=== PATIENT | female | born 1995 | race Caucasian/White ===

== ENCOUNTER 2017-06-15 16:15 | Inpatient (IN) | payer OTHER, SELFPAY | END 2017-06-16 20:35 | disposition home or self-care (01) | DRG 775 | PROVIDERS: Admitting Provider Nurse Practitioner Obstetrics & Gynecology; Visit Provider Nurse Practitioner Obstetrics & Gynecology | DX: O41.03X0 Oligohydramnios, third trimester, not applicable or unspecified (principal); Z37.0 Single live birth; Z3A.39 39 weeks gestation of pregnancy | CPT/HCPCS: 59409; 36415; 59025; 80305; 81001; 85025; 86850; 86900; 86901; 94762 ==

== ENCOUNTER 2019-04-09 04:58 | Inpatient (IN) ==
[2019-04-09 05:32] LABS: Appearance,Urine CLEAR (Clear); Blood, Urine TRACE-L (Negative); Color,Urine YELLOW (Yellow); Glucose,Urine (UA) Negative (Negative); Ketones,Urine Negative (Negative); Leukocyte Esterase,Urine 1+ (Negative); Microscopic, Urine URINE MICROSCOPIC (MICROSCOPIC); Protein,Urine TRACE (Negative); Specific Gravity, Urine 1.015 (1.005-1.030); Urobilinogen,Urine 0.2 EU/dl (0.2)
[2019-04-09 05:37] LABS: Amphetamine/Metha Screen,Urine Negative ng/mL (<1000); Barbiturates Screen,Urine Negative ng/mL (<200); Benzodiazepines Screen,Urine Negative ng/mL (<200); Cannabinoid Screen,Urine Negative ng/mL (<50); Cocaine Screen,Urine Negative ng/mL (<300); Methadone Screen,Urine Negative ng/mL (<300); Opiate Screen,Urine Negative ng/mL (<300); Phencyclidine Screen,Urine Negative ng/mL (<25)
[2019-04-09 06:07] LABS: Bilirubin,Urine Negative (Negative)
[2019-04-09 06:18] LABS: Bacteria,Urine 1+ /lpf; RBC,Urine Occasional #/hpf (0-3)
[2019-04-09 06:35] LABS: Basophils # 0.1 K/mm3 (0-0.2); Basophils % 0.3 % (0.1-2.0); Eosinophils # 0.1 K/mm3 (0.0-0.4); Eosinophils % 0.9 % (0.1-12.0); Hematocrit 37.6 % (37.0-47.0); Hemoglobin 12.3 g/dL (12.2-16.2); Lymphocytes # 2.7 K/mm3 (0.7-4.5); Lymphocytes % 16.7 % (10-50); Mean Corpuscular HGB Conc 32.6 g/dL (31.8-35.4); Mean Corpuscular Volume 97.5 fl (81-99); Mean Platelet Volume 9.9 fl (7.4-10.4); Monocytes % 6.1 % (1.7-9.3); Neutrophils # 12.2 K/mm3 (1.8-7.8); Neutrophils % 76.1 % (37.0-80.0); Platelet Count 384 K/mm3 (142-424); Red Blood Count 3.86 M/mm3 (4.20-5.40); White Blood Count 16.1 K/mm3 (4.8-10.8)
[2019-04-09 06:49] LABS: Eosinophils % 2 % (0-3); Lymphocytes % 14 % (10-50); Monocytes % 6 % (2-9); Neutrophils % 78 % (42-76); RBC Morphology Normal; Total Cells Counted 100
--- NOTE | 2019-04-09 07:35 | Progress Note ---
[facility] Anesthesia Checklist - Patient Identification Patient Identification: Arm Band - Structural Data Admitted From: Home Planned Operative Procedure/s: labor epidural Consent for Planned Operative Procedure(s) Verified: Yes Verified Documents: History and Physical - NPO Status Verified Time NPO: 00:00 - Additional verifications Anesthesia Reactions: No - Airway Assessment C-Spine Mobility Assessed: Yes TMJ Mobility Assessed: Yes Dentition: Good Dentition - Neurological Assessment Level of Consciousness: Awake, Alert - Anesthesia Plan Anesthesia Risk discussed: Yes Anesthesia Plan: Verified ASA Class: II Anesthesia Type: Epidural - Preoperative Comments Pre-Operative Comments: pt currently taking suboxone, discussed pain control extensively with pt d/t its antagonist effect on fentanyl. Plan is to not include fentanyl in epidural. Pt. verbalizes understanding [facility] History I have reviewed the patient's past medical history: Yes Medical History: Denies:: Diabetes Mellitus Type 1, Diabetes Mellitus Type 2 *Have you ever received a pneumonia vaccine?: No *Have you received a flu vaccine this season?: No Anesthesia experience/problems:: nac - *Social History Smoking Status: Current every day smoker Tobacco Type: cigarettes # Packs/Day (cigarettes): 1 Alcohol Intake: never Substance Use Type: other *Occupational Status:: employed *Travel in the last 8 weeks: None Family Hx:: No significant family history
--- NOTE | 2019-04-09 14:05 | History & Physical Report ---
OB - H&P: HPI Antepartum - History of Present Illness Chief complaint: contractions History of present illness: 23 yo @ 38 5/7 by patient reported EDC 04/18/19 Presented to [facility] OB triage with complaints of regular contractions. Cervical change was noted during her assessment and she was admitted in active labor. care has been through [facility] and multiple requests from for records were unsuccessful; we were told that these records are not available to the hospital after hours and would need to be requested during business hours on Wednesday. Without knowledge of maternal GBS status, she was given prophylactic antibiotics (Clindamycin due to amoxicillin allergy); maternal blood type/Rh status was confirmed with lab draw during this admission (O positive/antibody negative). has been complicated by a history of opioid dependence, and she is currently treated with subutex 16mg daily. + tobacco abuse (1PPD) monitoring since admission has showed intermittent periods of decreased variability, but has remained reassuring overall. Maternal status has been stable, with intermittent periods of hypotension following placement of epidural. - Labs Blood type: O (+) positive Rubella: unknown RPR/VDRL: unknown GBS status: unknown HBsAG: unknown Narrative: records from [facility]" [facility] unavailable at time of admission [facility] History I have reviewed the patient's past medical history: Yes Medical History: Denies:: Asthma, Diabetes Mellitus Type 1, Diabetes Mellitus Type 2, Hepatitis, Hypertension, Seizures *Have you ever received a pneumonia vaccine?: No *Have you received a flu vaccine this season?: No Anesthesia experience/problems:: nac Other Surgeries: Yes: Appendectomy, Cholecystectomy. No: - *Social History Smoking Status: Current every day smoker Tobacco Type: cigarettes # Packs/Day (cigarettes): 1 Alcohol Intake: never Substance Use Type: other *Occupational Status:: employed *Travel in the last 8 weeks: None Family Hx:: No significant family history : 2 Para: 1 Review of Systems - Review of Systems CONSTITUTIONAL: no fever/chills HEENT: no oral lesions PULMONARY: no shortness of breath or difficulty breathing CV: no racing heart, palpitations or chest pain ABD: no abdominal pain, N/V : + contractions. No bleeding/LOF SKIN: no new rash or skin lesions EXT: no edema NEURO: no mental status changes PSYCH: no current anxiety/depression Meds Home Medications Medication Instructions Recorded Confirmed Type Buprenorphine HCl [Subutex 8mg ODT] 16 mg SL DAILY 08/23/18 04/09/19 History Pnv No.122/Iron/Folic Acid 1 each PO DAILY 09/28/18 04/09/19 History [ Multi Tablet] Allergies Allergy/AdvReac Type Severity Reaction Status Date / Time amoxicillin [AMOXICILLIN] Allergy Unknown Verified 08/23/18 19:16 OB - H&P: Exam - Physical Exam Vital signs: Temp Pulse Resp BP Pulse Ox 97.5 F L 48 L 18 105/68 L 98 04/09/19 05:26 04/09/19 05:26 04/09/19 05:26 04/09/19 05:04/09/19 05:26 Narrative: CONSTITUTIONAL: no acute distress HEENT: mucous membranes moist PULMONARY: breathing unlabored without audible wheezes CV: no tachycardia or visible JVD; normal LE peripheral pulses ABD: soft, NT/ND, no guarding. Gravid uterus. : cervix 8/100/0 SKIN: no visible rash or lesions HEME: no lymphadenopathy EXT: 1+ edema LEs NEURO: alert/oriented, no altered mental status PSYCH: appropriate mood and demeanor without visible anxiety/depression NST: Basline: 130 Variability: moderate, with intermittent minimal Accelerations: yes Decelerations: no OB - Results - Labs Labs: Short CBC 04/09/19 Range/Units 05:46 WBC 16.1 H (4.8-10.8) K/mm3 Hgb 12.3 (12.2-16.2) g/dL Hct 37.6 (37.0-47.0) % Plt Count 384 (142-424) K/mm3 Urine 04/09/19 Range/Units 05:10 Urine Color Yellow (Yellow) Urine Appearance Clear (Clear) Urine pH 7.0 (5.0-8.5) Ur Specific [place] 1.015 (1.005-1.030) Urine Protein Trace (Negative) Urine Glucose (UA) Negative (Negative) OB - A/P Antepartum (1) 38 weeks gestation of Current visit: Yes Status: Acute (2) Active labor at term Current visit: Yes Status: Acute (3) with care elsewhere Current visit: Yes Status: Acute (4) complicated by subutex maintenance, antepartum Current visit: Yes Status: Acute (5) Smoking (tobacco) complicating , third trimester Current visit: Yes Status: Acute - Additional Plan Additional Information:: Admitted per labor protocol Antibiotic prophylaxis with clindamycin Continuous monitoring Epidural at patient request Unable to access records until tomorrow Continue subutex therapy at prescribed dosage Tobacco cessation
--- NOTE | 2019-04-09 14:25 | Procedure Note ---
- Delivery Note Delivery Date:: 04/09/19 Delivery Time:: 13:39 Anesthesia Type: Epidural Was labor medically induced?: No Gestational age (weeks): 38 delivered prior to 39 weeks?: Yes Justification for early elective delivery:: Active Labor Gender: Male at 1 minute: 8 at 5 minutes: 9 Delivery Procedure:: Spontaneous vaginal delivery of vigorous liveborn male over intact perineum. Delivery uncomplicated No nuchal cord or shoulder dystocia noted with delivery placed in TRISTAN with mother immediately after umbilical cord clamped/cut, with standard nursing assessment performed. Infant given HBIG in absence of documentation of maternal status (no records) Infant Apgars: 8 & 9 Placenta manually extracted after umbilical cord avulsion; uterine cavity explored to ensure complete evacuation of placental tissue and membranes Vulva, vagina, and cervix inspected; right periurethral laceration noted but no perineal, vaginal or cervical lacerations. Periurethral laceration hemostatic and not repaired. EBL: 300 cc All sponge/needle/instrument counts correct at conclusion of procedure Disposition: Mom/baby stable to recovery in LDRP Laceration:: labial Placental Delivery Description: Manual Removal
[2019-04-10 07:25] LABS: Hematocrit 32.5 % (37.0-47.0); Hemoglobin 10.2 g/dL (12.2-16.2)
[2019-04-10 08:36] VITALS: BP 121/61
--- NOTE | 2019-04-10 15:10 | Discharge Summary ---
General - General Admission date:: 04/09/19 Discharge date: 04/10/19 HPI HPI: 23 yo presented in active labor care in [place] with [facility]" due to chronic subutex therapy Delivery uncomplicated and course uneventful Discharged home on PPD #1 in stable condition Ibuprofen prn for pain; will continue subutex at maintenance dose and f/u with regular prescribing md for that medication May f/u for 6 wk visit with either [facility] or at [facility] Hospital Course Hospital Course: see HPI Rhogam Administration: Not Indicated Objective Vital signs: Temp Pulse Resp BP Pulse Ox 97.6 F 74 17 121/61 96 04/10/19 08:10 04/10/19 08:10 04/10/19 08:10 04/10/19 08:10 04/10/19 08:10 Narrative: CONSTITUTIONAL: no acute distress HEENT: mucous membranes moist PULMONARY: breathing unlabored without audible wheezes CV: no tachycardia or visible JVD; normal LE peripheral pulses ABD: soft, NT/ND, no guarding : fundus firm at/below umbilicus SKIN: no visible rash or lesions EXT: 1+ edema LEs NEURO: alert/oriented, no altered mental status PSYCH: appropriate mood and demeanor without visible anxiety/depression Results Labs on day of discharge: Labs from last 24 hours 04/10/19 04/10/19 06:50 06:50 Hgb 10.2 L Hct 32.5 L Blood Type Cancelled Antibody Screen Cancelled Screen Cancelled Baby's Rh Status Cancelled Preliminary micro results at discharge 04/09/19 05:10 Urine Culture - Preliminary Urine,Clean Catch NO GROWTH AFTER 24 HOURS DS: Diagnosis - Discharge Diagnosis (1) 38 weeks gestation of Status: Acute (2) Active labor at term Status: Acute (3) with care elsewhere Status: Acute (4) complicated by subutex maintenance, antepartum Status: Acute (5) Smoking (tobacco) complicating , third trimester Status: Acute (6) Vaginal delivery Status: Acute Discharge Plan - Patient Discharge Instructions ACTIVITY: Continue current activity DIET: regular diet - Follow up Plan Disposition: Home, Self-Correction Medications: Home Medications Medication Instructions Recorded Confirmed Type Buprenorphine HCl [Subutex 8mg ODT] 16 mg SL DAILY 08/23/18 04/09/19 History Pnv No.122/Iron/Folic Acid 1 each PO DAILY 09/28/18 04/09/19 History [ Multi Tablet] Prescriptions/Medication Reconciliation: New Ibuprofen [Motrin 400mg tablet] 800 mg PO Q6HP PRN tablet PRN Reason: Mild To Moderate Pain Continued Buprenorphine HCl [Subutex 8mg ODT] 16 mg SL DAILY Pnv No.122/Iron/Folic Acid [ Multi Tablet] 1 each PO DAILY - Problem Reconciliation Problems Reviewed?: Yes
== END 2019-04-10 15:38 | disposition home or self-care (01) | DRG 807 ==
LOC: OBOUT 04:58 → OB 05:05
PROVIDERS: ADMIT Obstetrics & Gynecology; ATTEND Obstetrics & Gynecology
CPT/HCPCS: 36415; 59025; 80305; 80307; 81001; 85007; 85014; 85018; 85025; 86850; 87086; 88307; 94761; J0571; S0077

== ENCOUNTER 2019-11-17 16:09 | Emergency (ER) | payer MEDICAID, SELFPAY ==
[2019-11-17 16:16] VITALS: BP 123/84; PULSE 100; RESP 16; TEMP 36.8; O2SAT 100; BMI 25.7
--- NOTE | 2019-11-17 16:19 | HMH.EDUTC ---
[facility] [place] Clinical Impression: Tobacco dependence Raynauds phenomenon Qualifiers: Raynaud?s-associated gangrene presence: without gangrene Qualified Code(s): I73.00 - Raynaud's syndrome without gangrene Disposition: Home, Self-Care Condition on Discharge: Good Instructions: Nicotine Addiction Additional Instructions: Drink plenty of fluids. Being mildly dehydrated with decrease the blood flow to your toes and fingers also. Stop smoking. Smoking causes vasoconstriction, which will make your nail beds more pale than they usually are. If you start having foot pain, pain with walking or any other worsening symptoms, please go to the ER. Follow up with your regular doctor. GO TO THE ER FOR ANY WORSENING SYMPTOMS Referrals: Provider,Referral, MD [Primary Care Provider] - Forms: Work/School Release Time of Disposition: 16:24 Medical Decision Making - Medical Records Medical records reviewed: No: I reviewed the patient's medical records. - Oli Inquiry Pt receiving controlled substance: No Vital Signs: 11/17/19 16:16 11/17/19 16:33 Temperature 98.2 F 98.8 F Temperature Source Oral Oral Pulse Rate 87 Pulse Rate [Right Brachial] 100 H Respiratory Rate 16 16 Blood Pressure 123/84 Blood Pressure [Right Arm] 123/84 Blood Pressure Mean [Right Arm] 97 Blood Pressure Source Automatic Cuff Blood Pressure Source [Right Arm] Automatic Cuff Blood Pressure Position Sitting Blood Pressure Position [Right Arm] Sitting 02 Sat by Pulse Oximetry 100 Oxygen Delivery Method Room Air Room Air [facility] [place] - General Stated complaint: weakness,problems with toe nails they are white Time Seen by Provider: 11/17/19 16:19 Mode of Arrival: Ambulatory Source of Information: Patient Limitations: No Limitations Description of Symptoms (Recalled from Triage Doc. by RN): PT advises she just feels weak and doesnt feel like herself and her toenails are white HEENT Symptoms (Recalled from RN notes): No Resp Symptoms (Recalled from RN notes): No Skin Symptoms (Recalled from RN notes): No MS Symptoms (Recalled from RN notes): No Functional Status (Recalled from RN notes): na - History of Present Illness Provider Complaint: She states that she was looking at her toes today and all the nail beds appear white, instead of the normal pink. She denies any foot pain, claudication, or other compliants. She does smoke cigarettes and she states states that she has been smoking more than normal lately due to stress. - Related Data Home Medications Medication Instructions Recorded Confirmed buprenorphine HCL [Subutex 8mg ODT] 16 mg SL DAILY 08/23/18 10/18/19 Mirtazapine [Remeron] 15 mg PO HS 10/18/19 10/18/19 Quetiapine Fumarate [Seroquel 25mg 25 mg PO HS 10/18/19 10/18/19 tablet] Sertraline HCl [Zoloft] 25 mg PO DAILY 10/18/19 10/18/19 Trazodone HCl 50 mg PO HSP PRN 10/18/19 10/18/19 Previous Rx's Medication Instructions Recorded Albuterol Sulfate [Albuterol HFA 1 - 2 puffs IH Q4-6H PRN #1 inh 10/18/19 Inhaler] Azithromycin [Z-Reinier 250mg Tab*] 250 mg PO UD DOSE PK #6 tab 10/18/19 Allergies Allergy/AdvReac Type Severity Reaction Status Date / Time amoxicillin [AMOXICILLIN] Allergy Unknown Verified 08/23/18 19:16 - Worker's Comp Is this a Worker's Comp case?: No [facility] History - Hepatitis A Screen Drug use history?: No High risk sexual behaviors?: No History of sexually transmitted infection?: No Currently employed?: No Childcare worker?: No Do you have indoor plumbing?: Yes Do you have electricity?: Yes Attestation statement:: This patient has been screened for Hepatitis A risk factors. I have reviewed the patient's past medical history: Yes Medical History: Denies:: Asthma, Diabetes Mellitus Type 1, Diabetes Mellitus Type 2, Hepatitis, Hypertension, Seizures Other Surgeries: Yes: Appendectomy, Cholecystectomy. No: - Social History Smoking Status: Cur
[2019-11-17 16:33] VITALS: BP 123/84; PULSE 87; RESP 16; TEMP 37.1; O2SAT 98
== END 2019-11-17 16:34 | disposition home or self-care (01) ==
PROVIDERS: Emergency Provider Nurse Practitioner Family
DX: I73.00 Raynaud's syndrome without gangrene (principal); F17.210 Nicotine dependence, cigarettes, uncomplicated; Z88.1 Allergy status to other antibiotic agents; Z79.899 Other long term (current) drug therapy; Z90.49 Acquired absence of other specified parts of digestive tract
CPT/HCPCS: 99201

== ENCOUNTER 2020-05-14 16:10 | Emergency (ER) | payer MEDICAID, SELFPAY ==
[2020-05-14 16:25] VITALS: BP 116/68; PULSE 73; RESP 21; TEMP 36.9; O2SAT 98; BMI 24.3
--- NOTE | 2020-05-14 16:56 | HMH.EDUTC ---
[facility] [place] [facility] [place] Clinical Impression: Urinary frequency, Dysuria Disposition: Home, Self-Care Condition on Discharge: Good Instructions: Urinary Tract Infection, Urine Culture, DI for Urinary Tract Infection (UTI) Additional Instructions: Drink plenty of fluids. Take tylenol or ibuprofen for pain or fever. Take the medications as directed. Follow up with your regular doctor. GO TO THE ER FOR ANY WORSENING SYMPTOMS Prescriptions: Sulfamethoxazole/Trimethoprim [Bactrim DS tablet] 1 each PO BID 7 Days #14 tab Transmission Status: Received by [facility] Referrals: PCP,No [Primary Care Provider] - Time of Disposition: 17:04 Medical Decision Making - Medical Records Medical records reviewed: No: I reviewed the patient's medical records. - Oli Inquiry Pt receiving controlled substance: No Vital Signs: 05/14/20 16:25 05/14/20 17:06 Temperature 98.4 F 98.4 F Temperature Source Oral Pulse Rate 73 Pulse Rate [Right Brachial] 73 Respiratory Rate 21 21 Blood Pressure 116/68 Blood Pressure [Right Arm] 116/68 Blood Pressure Mean [Right Arm] 84 Blood Pressure Source [Right Arm] Automatic Cuff Blood Pressure Position [Right Arm] Sitting 02 Sat by Pulse Oximetry 98 Oxygen Delivery Method Room Air - Lab Data Lab results reviewed: Yes: I reviewed the patient's lab results. Lab Results 05/14/20 16:48: Urine Color Dark yellow, Urine Appearance Cloudy, Urine pH 5.5, Ur Specific [place] >= 1.030, Urine Protein Negative, Urine Glucose (UA) Negative, Urine Ketones Negative, Urine Blood Negative, Urine Nitrate Negative, Urine Bilirubin 1+ A, Urine Urobilinogen 0.2, Ur Leukocyte Esterase Negative Orders (Tests/Meds): ORDERS Category Date Time Status Urine Culture Routine Micro 05/14/20 16:30 Received [facility] [place] [facility] [place] - General Stated complaint: possible uti Time Seen by Provider: 05/14/20 16:56 Mode of Arrival: Ambulatory Source of Information: Patient Limitations: No Limitations Description of Symptoms (Recalled from Triage Doc. by RN): PATIENT C/O LOWER BACK AND PELVIC PAIN AND URINARY URGENCY AT NIGHT X 1 WEEK HEENT Symptoms (Recalled from RN notes): No Resp Symptoms (Recalled from RN notes): No Skin Symptoms (Recalled from RN notes): No MS Symptoms (Recalled from RN notes): No Functional Status (Recalled from RN notes): WNL - History of Present Illness Provider Complaint: She c/o low back pain, dysuria and urinary frequency for the past 2 days. She denies any chance of being . She denies any fever or chills. - Related Data Home Medications Medication Instructions Recorded Confirmed buprenorphine HCL [Subutex 8mg ODT 16 mg SL DAILY 08/23/18 10/18/19 *OB USE ONLY*] Mirtazapine [Remeron] 15 mg PO HS 10/18/19 10/18/19 Quetiapine Fumarate [Seroquel 25mg 25 mg PO HS 10/18/19 10/18/19 tablet] Sertraline HCl [Zoloft] 25 mg PO DAILY 10/18/19 10/18/19 Trazodone HCl 50 mg PO HSP PRN 10/18/19 10/18/19 Previous Rx's Medication Instructions Recorded Albuterol Sulfate [Albuterol HFA 1 - 2 puffs IH Q4-6H PRN #1 inh 10/18/19 Inhaler] Azithromycin [Z-Reinier 250mg Tab*] 250 mg PO UD DOSE PK #6 tab 10/18/19 Sulfamethoxazole/Trimethoprim 1 each PO BID 7 Days #14 tab 05/14/20 [Bactrim DS tablet] Allergies Allergy/AdvReac Type Severity Reaction Status Date / Time amoxicillin [AMOXICILLIN] Allergy Unknown Verified 08/23/18 19:16 - Worker's Comp Is this a Worker's Comp case?: No [facility] History - Hepatitis A Screen Drug use history?: No High risk sexual behaviors?: No History of sexually transmitted infection?: No Currently employed?: No Childcare worker?: No Do you have indoor plumbing?: Yes Do you have electricity?: Yes Attestation statement:: This patient has been screened for Hepatitis A risk factors. I have reviewed the patient's past medical history: Yes Medical History: Denies:: Asthma, Diabetes Mellitus Type 1, Diabetes Mellit
[2020-05-14 17:02] LABS: Apearance,Urine Cloudy (Clear); Color,Urine Dark Yellow (Yellow)
[2020-05-14 17:03] LABS: Bilirubin,Urine 1+ (Negative); Blood, Urine Negative (Negative); Glucose,Urine (UA) Negative (Negative); Ketones,Urine Negative (Negative); PH,Urine 5.5 (5.0-8.5); Protein,Urine Negative (Negative); Specific Gravity, Urine >= 1.030 (1.005-1.030); UTC Leukocyte Esterase,Urine Negative (Negative); UTC Nitrate,Urine Negative (Negative); Urobilinogen,Urine 0.2 EU/dl (0.2)
[2020-05-14 17:06] VITALS: BP 116/68; PULSE 73; RESP 21; TEMP 36.9; O2SAT 98
== END 2020-05-14 17:11 | disposition home or self-care (01) ==
PROVIDERS: Emergency Provider Nurse Practitioner Family
DX: R35.0 Frequency of micturition (principal); R30.0 Dysuria; M54.5 Low back pain; R10.2 Pelvic and perineal pain; Z88.1 Allergy status to other antibiotic agents
CPT/HCPCS: 81003; 87086; 99201

== ENCOUNTER 2020-10-04 15:14 | Emergency (ER) | payer MEDICAID, SELFPAY ==
[2020-10-04 15:30] VITALS: BP 119/64; PULSE 72; RESP 17; TEMP 37; O2SAT 98; BMI 23.3
--- NOTE | 2020-10-04 15:51 | HMH.EDUTC ---
[facility] [place] Clinical Impression: Dyspepsia Disposition: Home, Self-Care Condition on Discharge: Good Instructions: DI for Dyspepsia Additional Instructions: Consider taking Pepcid daily and using Maalox as needed for abdominal pain and upset stomach. Talk to your doctor about whether or not mirtazapine is causing you to have upset stomach. Consider smoking cessation as this will help your upset stomach as well. Referrals: Ghassan Tirado [Primary Care Provider] - 3 days Forms: Work/School Release Medical Decision Making - Medical Records Medical records reviewed: No: I reviewed the patient's medical records. - Oli Inquiry Pt receiving controlled substance: No Vital Signs: 10/04/20 15:30 10/04/20 16:58 10/04/20 17:11 Temperature 98.6 F 98 F 98 F Temperature Source Oral Oral Oral Pulse Rate 78 Pulse Rate [Left] 72 78 Respiratory Rate 17 16 16 Blood Pressure 112/65 Blood Pressure [Left Arm] 119/64 111/69 Blood Pressure Mean [Left Arm] 82 83 Blood Pressure Source [Left Arm] Automatic Cuff Blood Pressure Position Sitting Blood Pressure Position [Left Arm] Sitting 02 Sat by Pulse Oximetry 98 96 Oxygen Delivery Method Room Air Room Air Room Air - Lab Data Lab results reviewed: Yes: I reviewed the patient's lab results. Lab Results 10/04/20 15:51: Urine Color Yellow, Urine Appearance Clear, Urine pH 6.5, Ur Specific [place] 1.030, Urine Protein Negative, Urine Glucose (UA) Negative, Urine Ketones Negative, Urine Blood Negative, Urine Nitrate Negative, Urine Bilirubin Negative, Urine Urobilinogen 0.2, Ur Leukocyte Esterase Negative, Tst Clinic Negative 10/04/20 16:10: WBC 7.4, RBC 4.25, Hgb 13.4, Hct 42.3, MCV 99.5 H, MCH 31.4 H, MCHC 31.6 L, RDW 11.7, Plt Count 252, MPV 7.6, Neut % (Auto) 58.3, Lymph % (Auto) 30.1, [place] % (Auto) 6.1, Eos % (Auto) 4.5, Baso % (Auto) 1.0, Neut # (Auto) 4.3, Lymph # (Auto) 2.2, [place] # (Auto) 0.5, Eos # (Auto) 0.3, Baso # (Auto) 0.1 10/04/20 16:10: Sodium 138, Potassium 4.1, Chloride 103, Carbon Dioxide 29, Anion Gap 10.1, BUN 10, Creatinine 0.60, Estimated Creat Clear 138, Estimated GFR 121, Est GFR ( Amer) 146, Glucose 90, Calcium 9.4, Total Bilirubin 0.2, AST 26, ALT 10 L, Alkaline Phosphatase 52, Total Protein 7.3, Albumin 4.5, Globulin 2.8, Albumin/Globulin Ratio 1.6, Amylase 67, Lipase 21 L Result diagrams: 10/04/20 16:10 10/04/20 16:10 [facility] [place] - General Stated complaint: stamoach ache Time Seen by Provider: 10/04/20 15:51 Mode of Arrival: Ambulatory Description of Symptoms (Recalled from Triage Doc. by RN): Pt c/o intermittent sharp, upper ABD pain that started 3 days ago. Pt also reports nasuea when the pain worsens. HEENT Symptoms (Recalled from RN notes): No Resp Symptoms (Recalled from RN notes): No Skin Symptoms (Recalled from RN notes): No MS Symptoms (Recalled from RN notes): No Functional Status (Recalled from RN notes): na - History of Present Illness Provider Complaint: She c/o 3 days of upper abdomen pain. She has had nausea and diarrhea also. She denies any fever. She had her gall bladder removed several years ago, but she still has her appendix. - Related Data Home Medications Medication Instructions Recorded Confirmed buprenorphine HCL [Subutex 8mg ODT 16 mg SL DAILY 08/23/18 10/04/20 *OB USE ONLY*] Allergies Allergy/AdvReac Type Severity Reaction Status Date / Time amoxicillin [AMOXICILLIN] Allergy Unknown Verified 05/24/20 10:32 - Worker's Comp Is this a Worker's Comp case?: No [facility] History - Hepatitis A Screen Drug use history?: Yes High risk sexual behaviors?: No History of sexually transmitted infection?: No Currently employed?: No Childcare worker?: No Do you have indoor plumbing?: Yes Do you have electricity?: Yes Attestation statement:: This patient has been screened for Hepatitis A risk factors. I have reviewed the patient's past medical history: Yes Medical History:
[2020-10-04 16:04] LABS: Apearance,Urine Clear (Clear); Bilirubin,Urine Negative (Negative); Blood, Urine Negative (Negative); Color,Urine Yellow (Yellow); Glucose,Urine (UA) Negative (Negative); Ketones,Urine Negative (Negative); PH,Urine 6.5 (5.0-8.5); Protein,Urine Negative (Negative); UTC Leukocyte Esterase,Urine Negative (Negative); UTC Nitrate,Urine Negative (Negative); UTC Pregnancy Test, Urine Negative (Negative); Urobilinogen,Urine 0.2 EU/dl (0.2)
[2020-10-04 16:25] LABS: Basophils # 0.1 K/mm3 (0-0.2); Eosinophils # 0.3 K/mm3 (0.0-0.4); Eosinophils % 4.5 % (0.1-12.0); Hematocrit 42.3 % (37.0-47.0); Hemoglobin 13.4 g/dL (12.2-16.2); Lymphocytes # 2.2 K/mm3 (0.7-4.5); Lymphocytes % 30.1 % (10-50); Mean Corpuscular HGB Conc 31.6 g/dL (31.8-35.4); Mean Corpuscular Hemoglobin 31.4 pg (27.0-31.2); Mean Corpuscular Volume 99.5 fl (81-99); Mean Platelet Volume 7.6 fl (7.4-10.4); Monocytes # 0.5 K/mm3 (0.1-1.0); Monocytes % 6.1 % (1.7-9.3); Neutrophils # 4.3 K/mm3 (1.8-7.8); Neutrophils % 58.3 % (37.0-80.0); Platelet Count 252 K/mm3 (142-424); Red Blood Count 4.25 M/mm3 (4.20-5.40); Red Cell Distribution Width 11.7 % (11.5-17.5); White Blood Count 7.4 K/mm3 (4.8-10.8)
[2020-10-04 16:41] LABS: Alanine Aminotransferase 10 U/L (12-78); Albumin Level 4.5 g/dl (3.5-5.0); Albumin/Globulin Ratio 1.6 (1.1-1.8); Alkaline Phosphatase 52 U/L (38-126); Amylase 67 U/L (30-110); Anion Gap 10.1 mEq/L (5-15); Aspartate Amino Transferase 26 U/L (14-36); Bilirubin,Total 0.2 mg/dl (0.2-1.3); Blood Urea Nitrogen 10 mg/dl (7-17); Calcium 9.4 mg/dl (8.4-10.2); Carbon Dioxide 29 mmol/L (22.0-30.0); Chloride 103 mmol/L (98-107); Creatinine Clearance Estimated 138 mL/min (50-200); Estimated Glomerular Filt Rate 121 ml/min (>60); GFR (African American) 146 ML/MIN (>60); Globulin 2.8 g/dL (1.3-3.2); Glucose 90 mg/dl (74-100); Lipase 21 U/L (23-300); Potassium 4.1 mmoL/L (3.5-5.1); Sodium 138 mmol/L (136-145); Total Protein,Serum 7.3 g/dl (6.3-8.2)
--- NOTE | 2020-10-04 16:45 | PC.NURSE ---
Pt requesting to go to the ER at this time. Called ER and given room 10.
--- NOTE | 2020-10-04 16:55 | HMH.EDABDPAI ---
ED Disposition Clinical Impression: Dyspepsia Disposition: Home, Self-Care Condition on Discharge: Good Instructions: DI for Dyspepsia Additional Instructions: Consider taking Pepcid daily and using Maalox as needed for abdominal pain and upset stomach. Talk to your doctor about whether or not mirtazapine is causing you to have upset stomach. Consider smoking cessation as this will help your upset stomach as well. Referrals: Ghassan Tirado [Primary Care Provider] - 3 days - Critical Care Critical Care Time: No Attestation: On 10/04/20, the high probability of a clinically significant, sudden or life threatening deterioration of the following system(s) required my full and direct attention, intervention and personal management. The time I documented below is in addition to time spent performing reported procedures but includes the following listed in this critical care notation. Medical Decision Making - Medical Records Medical records reviewed: Yes: I reviewed the patient's medical records. - Oli Inquiry Pt receiving controlled substance: No Vital Signs: 10/04/20 15:30 Temperature 98.6 F Temperature Source Oral Pulse Rate [Left] 72 Respiratory Rate 17 Blood Pressure [Left Arm] 119/64 Blood Pressure Mean [Left Arm] 82 Blood Pressure Source [Left Arm] Automatic Cuff 02 Sat by Pulse Oximetry 98 Oxygen Delivery Method Room Air - Lab Data Lab results reviewed: Yes: I reviewed the patient's lab results. Lab Results 10/04/20 15:51: Urine Color Yellow, Urine Appearance Clear, Urine pH 6.5, Ur Specific [place] 1.030, Urine Protein Negative, Urine Glucose (UA) Negative, Urine Ketones Negative, Urine Blood Negative, Urine Nitrate Negative, Urine Bilirubin Negative, Urine Urobilinogen 0.2, Ur Leukocyte Esterase Negative, Tst Clinic Negative 10/04/20 16:10: WBC 7.4, RBC 4.25, Hgb 13.4, Hct 42.3, MCV 99.5 H, MCH 31.4 H, MCHC 31.6 L, RDW 11.7, Plt Count 252, MPV 7.6, Neut % (Auto) 58.3, Lymph % (Auto) 30.1, [place] % (Auto) 6.1, Eos % (Auto) 4.5, Baso % (Auto) 1.0, Neut # (Auto) 4.3, Lymph # (Auto) 2.2, [place] # (Auto) 0.5, Eos # (Auto) 0.3, Baso # (Auto) 0.1 10/04/20 16:10: Sodium 138, Potassium 4.1, Chloride 103, Carbon Dioxide 29, Anion Gap 10.1, BUN 10, Creatinine 0.60, Estimated Creat Clear 138, Estimated GFR 121, Est GFR ( Amer) 146, Glucose 90, Calcium 9.4, Total Bilirubin 0.2, AST 26, ALT 10 L, Alkaline Phosphatase 52, Total Protein 7.3, Albumin 4.5, Globulin 2.8, Albumin/Globulin Ratio 1.6, Amylase 67, Lipase 21 L Result diagrams: 10/04/20 16:10 10/04/20 16:10 Medical Decision Narrative: Patient's labs show no signs of UTI, test negative. No signs of biliary obstruction or pancreatitis. No chest pain or shortness of breath that would suggest cardiopulmonary process. Suspect dyspepsia/gastritis secondary to smoking, frequent anxiety, Suboxone use and possibly new medication mirtazapine is an irritant as well. I recommended Pepcid daily and Maalox as needed for acute exacerbations. Also recommended follow-up with primary care provider early next week to discuss whether or not they may need to switch medication from mirtazapine to another medicine that is not such a gastric irritant for her. Her symptoms are inconsistent with bowel obstruction, perforation, appendicitis, volvulus, diverticulitis or other acute intra-abdominal pathology. Abdominal Pain HPI - General Stated Complaint: stamoach ache Time Seen by Provider: 10/04/20 15:51 Mode of Arrival: Ambulatory Description of Symptoms (Recalled from ER Triage Doc. by RN): Pt c/o intermittent sharp, upper ABD pain that started 3 days ago. Pt also reports nasuea when the pain worsens. - History of Present Illness HPI narrative: This is a 25-year-old female with no significant past medical history who presents to the emergency department for epigastric abdominal pain over the last 3 days. No exacerbating or alleviating factors. She
[2020-10-04 16:58] VITALS: BP 111/69; PULSE 78; RESP 16; TEMP 36.6; O2SAT 96; BMI 23.1
[2020-10-04 17:11] VITALS: BP 112/65; PULSE 78; RESP 16; TEMP 36.6; O2SAT 98
== END 2020-10-04 17:12 | disposition home or self-care (01) ==
LOC: UTC 15:16 → COUGHCL 16:49 → ER 16:49
PROVIDERS: Emergency Provider Nurse Practitioner Family; PCP Pediatrics
DX: R10.13 Epigastric pain (principal); Z88.1 Allergy status to other antibiotic agents; F17.210 Nicotine dependence, cigarettes, uncomplicated
CPT/HCPCS: 80053; 81003; 81025; 82150; 83690; 85025; 99282

== ENCOUNTER 2021-03-21 19:18 | Emergency (ER) | payer MEDICAID, SELFPAY ==
[2021-03-21 20:56] VITALS: BP 0/0; PULSE 0; RESP 0; TEMP -17.7; TEMP 0
== END 2021-03-21 20:57 | disposition left against medical advice (07) ==
LOC: UTC 19:21
PROVIDERS: Emergency Provider Nurse Practitioner Family; PCP Pediatrics
DX: Z53.21 Procedure and treatment not carried out due to patient leaving prior to being seen by health care provider (principal)

== ENCOUNTER 2021-03-22 15:34 | Emergency (ER) | payer MEDICAID, SELFPAY ==
[2021-03-22 16:37] VITALS: BP 114/75; PULSE 84; RESP 18; TEMP 36.6; O2SAT 96; BMI 21.6
--- NOTE | 2021-03-22 16:44 | HMH.EDUTC ---
[facility] [place] Dis[place] Clinical Impression: Viral syndrome, Exposure to COVID-19 virus Disposition: Home, Self-Care Condition on Discharge: Good Instructions: DI for COVID-19 (Suspected or Confirmed ), Preventing the Spread of Coronavirus Discharge Instructions Additional Instructions: Drink plenty of fluids. Take tylenol or ibuprofen for pain or fever. Take the medications as directed. Follow up with your regular doctor. GO TO THE ER FOR ANY WORSENING SYMPTOMS Throw your tooth brush away and get a new one. Quarantine until you know the results of your covid-19 test. If it is positive, the health department should call you and give you further instructions about your length of Quarantine and other things. Notify your school or workplace of your results and follow their instructions regarding return to work/school. Prescriptions: Brompheniramine/Pseudoephed/Dm [Bromfed Dm Cough Syrup] 5 ml PO Q6HP PRN #240 ml PRN Reason: Cough Transmission Status: Received by [id number] predniSONE [Deltasone 10mg tablet] 10 mg PO BID 3 Days #6 tab Transmission Status: [facility] Azithromycin [Z-Reinier 250mg Tab*] 250 mg PO UD DOSE PK #6 tab Transmission Status: [facility] Referrals: Ghassan Tirado [Primary Care Provider] - Forms: Work/School Release Time of Disposition: 17:02 Medical Decision Making - Medical Records Medical records reviewed: No: I reviewed the patient's medical records. - Oli Inquiry Pt receiving controlled substance: No Vital Signs: 03/22/21 16:37 03/22/21 16:49 Temperature 98 F 98 F Temperature Source Oral Pulse Rate 84 Pulse Rate [Left] 84 Respiratory Rate 18 18 Blood Pressure 114/75 Blood Pressure [Right Arm] 114/75 Blood Pressure Mean [Right Arm] 88 02 Sat by Pulse Oximetry 96 Orders (Tests/Meds): ORDERS Category Date Time Status Covid-19 Nasal PCR ([facility]) Routine Lab 03/22/21 16:24 Received [facility] [place] HPI - General Stated complaint: covid test, cough BEDOYA,Weak, Abd pain RUnny nose Time Seen by Provider: 03/22/21 16:45 Mode of Arrival: Ambulatory Source of Information: Patient Limitations: No Limitations Description of Symptoms (Recalled from Triage Doc. by RN): PT C/O FEVER, RUNNY NOSE, BODY WEAKNESS, LOSS OF SMELL AND COUGH. EXPOSED 03/16 HEENT Symptoms (Recalled from RN notes): Yes (RUNNY NOSE AND LOSS OF SMELL) Resp Symptoms (Recalled from RN notes): Yes (COUGH) Skin Symptoms (Recalled from RN notes): No MS Symptoms (Recalled from RN notes): No Functional Status (Recalled from RN notes): WEAKNESS AND FEVER - History of Present Illness Provider Complaint: She states that 2 days ago she started feeling bad. She has a sore throat, dry cough and she has lost her sense of smell. She has not been vaccinated against covid-19. - Related Data Home Medications Medication Instructions Recorded Confirmed buprenorphine HCL [Subutex 8mg ODT 16 mg SL DAILY 08/23/18 10/04/20 *OB USE ONLY*] Previous Rx's Medication Instructions Recorded Azithromycin [Z-Reinier 250mg Tab*] 250 mg PO UD DOSE PK #6 tab 03/22/21 Brompheniramine/Pseudoephed/Dm 5 ml PO Q6HP PRN #240 ml 03/22/21 [Bromfed Dm Cough Syrup] predniSONE [Deltasone 10mg tablet] 10 mg PO BID 3 Days #6 tab 03/22/21 Allergies Allergy/AdvReac Type Severity Reaction Status Date / Time amoxicillin [AMOXICILLIN] Allergy Unknown Verified 05/24/20 10:32 - Worker's Comp Is this a Worker's Comp case?: No [facility] History - Hepatitis A Screen Drug use history?: No High risk sexual behaviors?: No History of sexually transmitted infection?: No Currently employed?: No Childcare worker?: No Do you have indoor plumbing?: Yes Do you have electricity?: Yes Attestation statement:: This patient has been screened for Hepatitis A risk factors. I have reviewed the patient's past medical history: Yes Medical History: Denies:: Asthma, Cancer, Diabetes
[2021-03-22 16:49] VITALS: BP 114/75; PULSE 84; RESP 18; TEMP 36.6
--- NOTE | 2021-03-23 16:05 | PC.NURSE ---
informed patient that she was positive
== END 2021-03-22 17:26 | disposition home or self-care (01) ==
PROVIDERS: Emergency Provider Nurse Practitioner Family; PCP Pediatrics
DX: U07.1 COVID-19 (principal); B34.9 Viral infection, unspecified; F17.210 Nicotine dependence, cigarettes, uncomplicated
CPT/HCPCS: 99202; C9803; G0463; U0003; U0005

== ENCOUNTER 2021-08-04 17:02 | Emergency (ER) | payer MEDICAID, SELFPAY ==
[2021-08-04 17:21] VITALS: PULSE 82; RESP 16; O2SAT 99; BMI 22.1
[2021-08-04 20:39] VITALS: BP 0/0; PULSE 0; RESP 0; TEMP -17.7; TEMP 0
== END 2021-08-04 20:41 | disposition left against medical advice (07) ==
LOC: UTC 17:33
PROVIDERS: Emergency Provider Nurse Practitioner Family; PCP Pediatrics
DX: Z53.21 Procedure and treatment not carried out due to patient leaving prior to being seen by health care provider (principal)

== ENCOUNTER 2022-07-25 21:05 | Emergency (ER) | payer MEDICAID, SELFPAY ==
--- NOTE | 2022-07-25 21:12 | HMH.EDGENADL ---
Discharge Plan Disposition Patient Disposition: Home, Self-Care Condition: Good Chief Complaint: PAIN Prescriptions Prescriptions: No Action buprenorphine HCl 8 MG Tab.Subl 16 mg sublingual DAILY azithromycin 250 MG tablet 250 mg PO UD DOSE PK Qty: 6 0RF Rx Instructions: Take two (2) tablets today, then one (1) tablet days #2 thru #5 prednisone 10 MG tablet 10 mg PO BID 3 Days Qty: 6 0RF [id number] 118 ML syrup 5 ml PO Q6HP PRN (Reason: Cough) Qty: 240 0RF Referrals Follow up/Referrals: Ghassan Tirado [Primary Care Provider] - See instructions Clinical Impressions Clinical Impression: Contusion of elbow and forearm Instructions Patient Instructions: DI for Contusion Discharge ED Provider: Evan Morales General Adult HPI General Chief complaint: PAIN Stated complaint: Ao 07/25@2019 Injured R Arm Time Seen by Provider: 07/25/22 21:12 History of Present Illness HPI narrative: 27-year-old female presents with right arm injury, states she dropped a mattress and box spring over the right elbow occurred just prior to arrival, denies any numbness or tingling, has range of motion at the elbow however with some pain. No treatments prior to arrival Related Data Home Medications Medication Instructions Recorded Confirmed buprenorphine HCl 8 mg sublingual 16 mg sublingual DAILY drug 08/23/18 10/04/20 tablet addition hx Previous Rx's Medication Instructions Recorded azithromycin 250 mg tablet 250 mg PO UD DOSE PK #6 tabs 03/22/21 hokhxaxtvsuubeh-mnqybezogdsecbo-TF 5 ml PO Q6HP PRN Cough #240 mL 03/22/21 2 mg-30 mg-10 mg/5 mL oral syrup prednisone 10 mg tablet 10 mg PO BID 3 days #6 tabs 03/22/21 Allergies Allergy/AdvReac Type Severity Reaction Status Date / Time amoxicillin [AMOXICILLIN] Allergy Unknown Verified 05/24/20 10:32 [facility] Disclaimer: The information contained in this section may have been updated after the patient was seen, as this information can be updated by other users. Medical History Opioid dependence Surgical History Hx of appendectomy Hx of cholecystectomy Social History Smoking Status: Current every day smoker tobacco type: cigarettes packs per day: 5 alcohol intake: never substance use type: former substance user current occupational status: other Travel in the last 8 weeks: None household members: significant other and children ROS Obtained: Yes Systems reviewed as appropriate & no additional complaints except as documented Constitutional Constitutional: Reports system reviewed and no additional complaints, except as documented Eyes Eyes: Reports system reviewed and no additional complaints, except as documented ENT Ears, Nose, Mouth, and Throat: Reports system reviewed and no additional complaints, except as documented Cardiovascular Cardiovascular: Reports system reviewed and no additional complaints, except as documented Respiratory Respiratory: Reports system reviewed and no additional complaints, except as documented Gastrointestinal Gastrointestingal: Reports system reviewed and no additional complaints, except as documented Genitourinary Female Genitourinary: Reports system reviewed and no additional complaints, except as documented Musculoskeletal Musculoskeletal: Reports system reviewed and no additional complaints, except as documented Integumentary/Breasts Skin/Breast: Reports system reviewed and no additional complaints, except as documented Neurologic Neurologic: Reports system reviewed and no additional complaints, except as documented Endocrine Endocrine: Reports system reviewed and no additional complaints, except as documented Hematologic/Lymphatic Henatologic/Lymphatic: Reports system reviewed and no additional complaints, except
[2022-07-25 21:13] VITALS: BP 128/88; PULSE 100; RESP 18; TEMP 36.8; O2SAT 97; BMI 19.1
--- NOTE | 2022-07-25 21:18 | XR_ITS ---
PROCEDURE INFORMATION: Exam: XR Right Elbow Exam date and time: 07/25/2022 9:15 PM Age: 27 years old Clinical indication: Pain; Elbow; Right; Additional info: Injury TECHNIQUE: Imaging protocol: Radiologic exam of the Right elbow. Views: 3 or more views. COMPARISON: No relevant prior studies available. FINDINGS: Bones/joints: No fractures. No blastic or lytic lesions. Radiocapitellar alignment and ulnotrochlear alignment are normal. Proximal radioulnar alignment is normal. No gross joint effusion. Soft tissues: No periostitis or osteolysis. No gross soft tissue abnormalities. No radiopaque foreign bodies. Other findings: Mildly limited technique with no direct AP view, possibly related to pain and inability to position. IMPRESSION: No acute findings.
[2022-07-25 21:27] LABS: Urine Pregnancy, HCG Qual. Negative (Negative)
[2022-07-25 21:36] VITALS: BP 125/75; PULSE 88; RESP 20; TEMP 36.8; O2SAT 99
== END 2022-07-25 21:51 | disposition home or self-care (01) ==
PROVIDERS: Emergency Provider Emergency Medicine; PCP Pediatrics
DX: S50.01XA Contusion of right elbow, initial encounter (principal); S50.11XA Contusion of right forearm, initial encounter; W20.8XXA Other cause of strike by thrown, projected or falling object, initial encounter; F11.20 Opioid dependence, uncomplicated; F17.210 Nicotine dependence, cigarettes, uncomplicated; Z87.19 Personal history of other diseases of the digestive system
CPT/HCPCS: 73080; 81025; 99283; 99284

== ENCOUNTER 2022-08-27 21:40 | Emergency (ER) | payer MEDICAID, SELFPAY ==
[2022-08-27 21:41] VITALS: BP 123/71; PULSE 81; RESP 17; TEMP 36.8; O2SAT 98; BMI 20.5
[2022-08-27 22:04] LABS: Microscopic, Urine URINE MICROSCOPIC (MICROSCOPIC)
[2022-08-27 22:17] LABS: Appearance,Urine CLEAR (Clear); Bilirubin,Urine Negative (Negative); Blood, Urine Negative (Negative); Color,Urine YELLOW (Yellow); Glucose,Urine (UA) Negative (Negative); Ketones,Urine Negative (Negative); Leukocyte Esterase,Urine Negative (Negative); Nitrate,Urine Negative (Negative); PH,Urine 6.5 (5.0-8.5); Protein,Urine Negative (Negative); Specific Gravity, Urine 1.015 (1.005-1.030); Urobilinogen,Urine 0.2 EU/dl (0.2)
[2022-08-27 22:19] LABS: Urine Pregnancy, HCG Qual. Negative (Negative)
[2022-08-27 22:34] LABS: Amorphous Sediment,Urine Trace /lpf; Bacteria,Urine Trace /lpf; RBC,Urine Occasional #/hpf (0-3); WBC,Urine Occasional #/hpf (0-3)
--- NOTE | 2022-08-27 23:31 | HMH.EDABDPAI ---
Discharge Plan Disposition Patient Disposition: Home, Self-Care Prescriptions Prescriptions: New metronidazole 500 mg Tablet 500 mg PO BID Qty: 20 0RF levofloxacin 500 mg tablet 500 mg PO DAILY Qty: 7 0RF ketorolac 10 mg tablet 10 mg PO Q8H 3 Days Qty: 9 0RF No Action buprenorphine-naloxone 8-2 mg tablet, sublingual 1.5 tab SUBLINGUAL DAILY Label Comments: DISSOLVE 1 & 1/2 TABLET UNDER THE TONGUE ONCE DAILY DIRECTED Referrals Follow up/Referrals: Ghassan Tirado [Primary Care Provider] - See instructions Clinical Impressions Clinical Impression: Colitis Instructions Patient Instructions: DI for Colitis Discharge ED Provider: Sabina (ED)Abdiel Abdominal Pain HPI General Chief Complaint: Abdominal Pain Stated Complaint: Left side pain for 2 hr Time Seen by Provider: 08/27/22 23:31 Mode of Arrival: Ambulatory Source of Information: Patient, Parent(s) and Medical Record Limitations: No Limitations Description of Symptoms (Recalled from ER Triage Doc. by RN): 27 F presents with 2 hours of LLQ abdominal pain which she reports started suddenly while she was at work this evening. She is a with history of an Appe and Francoise. Denies fever, chills, dysuria. Reports normal bowel and urination. History of Present Illness HPI narrative: lt flank to lt upper abd pain which started today no fever/rash or trauma and no bingo caller or gu sx MD complaint: flank pain Onset (ago): hour(s) Consistency: intermittent Location: LUQ and L flank Severity: moderate Associated symptoms: denies other symptoms Related Data Home Medications Medication Instructions Recorded Confirmed buprenorphine 8 mg-naloxone 2 mg 1.5 tab sublingual DAILY addiction 07/25/22 08/27/22 sublingual tablet Previous Rx's Medication Instructions Recorded ketorolac 10 mg tablet 10 mg PO Q8H 3 days #9 tabs 08/28/22 levofloxacin 500 mg tablet 500 mg PO DAILY #7 tabs 08/28/22 metronidazole 500 mg tablet 500 mg PO BID #20 tabs 08/28/22 Allergies Allergy/AdvReac Type Severity Reaction Status Date / Time amoxicillin [AMOXICILLIN] Allergy Unknown Verified 05/24/20 10:32 [facility] Disclaimer: The information contained in this section may have been updated after the patient was seen, as this information can be updated by other users. Medical History Opioid dependence Surgical History Hx of appendectomy Hx of cholecystectomy Social History Smoking Status: Current every day smoker tobacco type: cigarettes packs per day: 5 alcohol intake: never substance use type: former substance user current occupational status: other Travel in the last 8 weeks: None household members: significant other and children ROS Obtained: Yes All systems reviewed & no additional complaints except as documented Physical Exam General General appearance: alert Head Head exam: normocephalic Eye Eye exam: Present PERRL and EOMI; Absent scleral icterus ENT ENT exam: Present mucous membranes moist Neck Neck exam: Present trachea midline Respiratory Respiratory exam: Absent respiratory distress Cardiovascular Cardiovascular exam: Present regular rate Abdominal Exam Abdominal exam: Present soft and tenderness; Absent guarding or rebound Abdominal tenderness: Present LUQ and moderate Extremities Exam Extremities exam: Present full ROM Back Exam Back exam: Absent CVA tenderness (L) Neurological Exam Neurological exam: Present alert, oriented X3 and CN II-XII intact; Absent motor sensory deficit Psychiatric Psychiatric exam: Present normal affect Skin Skin exam: Absent rash Medical Decision Making Medical Records Medical records reviewed: Yes I reviewed the patient's medical records. Oli Inquiry Pt receiving controlled substance: No Vital Signs:
[2022-08-27 23:54] LABS: Basophils # 0.1 K/mm3 (0-0.2); Basophils % 0.5 % (0.1-2.0); Eosinophils # 0.1 K/mm3 (0.0-0.4); Eosinophils % 0.6 % (0.1-12.0); Hematocrit 39.8 % (37.0-47.0); Hemoglobin 13.3 g/dL (12.2-16.2); Lymphocytes # 1.6 K/mm3 (0.7-4.5); Lymphocytes % 14.7 % (10-50); Mean Corpuscular HGB Conc 33.6 g/dL (31.8-35.4); Mean Corpuscular Hemoglobin 32.8 pg (27.0-31.2); Mean Corpuscular Volume 97.8 fl (81-99); Mean Platelet Volume 8.1 fl (7.4-10.4); Monocytes # 0.4 K/mm3 (0.1-1.0); Monocytes % 3.9 % (1.7-9.3); Neutrophils # 8.7 K/mm3 (1.8-7.8); Neutrophils % 80.3 % (37.0-80.0); Platelet Count 243 K/mm3 (142-424); Red Blood Count 4.07 M/mm3 (4.20-5.40); Red Cell Distribution Width 12.1 % (11.5-17.5); White Blood Count 10.9 K/mm3 (4.8-10.8)
--- NOTE | 2022-08-28 | CT_ITS ---
PROCEDURE INFORMATION: Exam: CT Abdomen And Pelvis With Contrast Exam date and time: 08/28/2022 12:10 AM Age: 27 years old Clinical indication: Abdominal pain; Prior surgery; Surgery type: Cholecystectomy; Patient HX: PT C/O left lower & left flank abd pain TECHNIQUE: Imaging protocol: Computed tomography of the abdomen and pelvis with contrast. Radiation optimization: All CT scans at this facility use at least one of these dose optimization techniques: automated exposure control; mA and/or kV adjustment per patient size (includes targeted exams where dose is matched to clinical indication); or iterative reconstruction. Contrast material: ISOVUE; Contrast volume: 75 ml; Contrast route: IV; Other protocol: This patient has received 0 known CTs and 0 known cardiac nuclear medicine studies in the 12 months prior to the current study. COMPARISON: OB>14WKS US OB >= 14 weeks Fetus 11/15/2018 3:16 PM FINDINGS: Tubes, catheters and devices: Intrauterine device appears to be in good position. Liver: Normal. No mass. Gallbladder and bile ducts: The gallbladder is surgically absent. Pancreas: Normal. No ductal dilation. Spleen: Normal. No splenomegaly. Adrenal glands: Normal. No mass. Kidneys and ureters: Normal. No hydronephrosis. Stomach and bowel: There is moderate circumferential wall thickening of the ascending colon suggesting active colitis. No evidence of bowel obstruction. Appendix: No evidence of appendicitis. Intraperitoneal space: Minimal free fluid noted in the pelvis. No evidence of free air. Vasculature: Unremarkable. No abdominal aortic aneurysm. Lymph nodes: Unremarkable. No enlarged lymph nodes. Urinary bladder: Unremarkable as visualized. Reproductive: Unremarkable as visualized. Bones/joints: Unremarkable. No acute fracture. Soft tissues: Unremarkable. IMPRESSION: Moderate circumferential wall thickening of the ascending colon compatible with active colitis
[2022-08-28 00:05] LABS: Alanine Aminotransferase 15 U/L (12-78); Albumin Level 4.2 g/dl (3.5-5.0); Albumin/Globulin Ratio 1.6 (1.1-1.8); Alkaline Phosphatase 60 U/L (38-126); Amylase 65 U/L (30-110); Aspartate Amino Transferase 24 U/L (14-36); Bilirubin,Total 0.3 mg/dl (0.2-1.3); Blood Urea Nitrogen 8 mg/dl (7-17); Calcium 8.8 mg/dl (8.4-10.2); Carbon Dioxide 32 mmol/L (22.0-30.0); Chloride 103 mmol/L (98-107); Creatinine Clearance Estimated 120 mL/min (50-200); Estimated Glomerular Filt Rate 119 ml/min (>60); GFR (African American) 144 ML/MIN (>60); Globulin 2.6 g/dL (1.3-3.2); Glucose 93 mg/dl (74-100); Lipase 31 U/L (23-300); Sodium 137 mmol/L (136-145); Total Protein,Serum 6.8 g/dl (6.3-8.2)
[2022-08-28 01:08] LABS: Lactic Acid 0.6 mmol/L (0.7-2.1)
[2022-08-28 01:12] LABS: C-Reactive Protein 0.3 mg/L (0-4)
[2022-08-28 01:13] VITALS: BP 125/78; PULSE 68; RESP 18; TEMP 36.7; O2SAT 98
[2022-08-28 01:41] LABS: Procalcitonin < 0.030 ng/mL (0.0-2.0)
[2022-08-28 01:42] LABS: Erythrocyte Sedimentation Rate 11 mm/hr (0-20)
== END 2022-08-28 01:37 | disposition home or self-care (01) ==
PROVIDERS: Emergency Provider Emergency Medicine; PCP Pediatrics
DX: K52.9 Noninfective gastroenteritis and colitis, unspecified (principal); R10.32 Left lower quadrant pain; F11.20 Opioid dependence, uncomplicated; F17.210 Nicotine dependence, cigarettes, uncomplicated; Z90.49 Acquired absence of other specified parts of digestive tract
CPT/HCPCS: 74177; 80053; 81001; 81025; 82150; 83605; 83690; 84145; 85025; 85651; 86140; 87040; 96361; 96374; 96375; 99285; Q9967

== ENCOUNTER 2022-10-01 08:37 | Emergency (ER) | payer MEDICAID, SELFPAY ==
[2022-10-01 08:44] VITALS: BMI 20.5
[2022-10-01 08:45] LABS: Microscopic, Urine URINE MICROSCOPIC (MICROSCOPIC)
[2022-10-01 08:47] VITALS: BP 122/62; PULSE 77; RESP 20; TEMP 36.9; O2SAT 98; BMI 20.5
[2022-10-01 08:48] LABS: Appearance,Urine CLOUDY (Clear); Blood, Urine Negative (Negative); Color,Urine YELLOW (Yellow); Glucose,Urine (UA) Negative (Negative); Ketones,Urine 1+ (Negative); Leukocyte Esterase,Urine Negative (Negative); Nitrate,Urine Negative (Negative); PH,Urine 7.5 (5.0-8.5); Protein,Urine TRACE (Negative); Urobilinogen,Urine 0.2 EU/dl (0.2)
[2022-10-01 08:51] LABS: Bilirubin,Urine 1+ (Negative)
[2022-10-01 08:51] LABS: Urine Pregnancy, HCG Qual. Negative (Negative)
--- NOTE | 2022-10-01 08:55 | CT_ITS ---
FINAL REPORT TECHNIQUE: Axial images through the abdomen and pelvis were performed without contrast.This study was performed with techniques to keep radiation doses as low as reasonably achievable, (ALARA). Individualized dose reduction techniques using automated exposure control or adjustment of mA and/or kV according to the patient's size were employed. CLINICAL HISTORY: r/o kidney stone, vomiting , back pain COMPARISON: 08/28/2022 FINDINGS: ABDOMEN: The lung bases are clear. The heart size is normal. Limited images of the liver are unremarkable. Patient is status post cholecystectomy. The spleen is normal. No adrenal mass is identified. The aorta is normal in caliber. There is no significant free fluid or adenopathy. There is mild increased signal within the renal medulla bilaterally which may be due to medullary sponge kidney. There is no hydronephrosis. No renal stones are identified. PELVIS: The appendix is not identified. The uterus is normal. An IUD is present. The urinary bladder is unremarkable. There is no significant free fluid or adenopathy. IMPRESSION: Probable medullary sponge kidney. No hydronephrosis or nephrolithiasis. Reviewed, Interpreted and Dictated by Car Schneider MD Transcribed by Arlen Edge Authenticated and [facility]
[2022-10-01 09:00] LABS: Bacteria,Urine 3+ /lpf; Mucus,Urine Trace /lpf; WBC,Urine Occasional #/hpf (0-3)
--- NOTE | 2022-10-01 09:05 | HMH.EDGENADL ---
Discharge Plan Disposition Patient Disposition: Home, Self-Care Condition: Good Prescriptions Prescriptions: New ondansetron 4 mg tablet,disintegrating 4 mg PO Q8H PRN (Reason: nausea and vomiting) Qty: 7 0RF No Action metronidazole 500 mg Tablet 500 mg PO BID Qty: 20 0RF levofloxacin 500 mg tablet 500 mg PO DAILY Qty: 7 0RF ketorolac 10 mg tablet 10 mg PO Q8H 3 Days Qty: 9 0RF buprenorphine-naloxone 8-2 mg tablet, sublingual 1.5 tab SUBLINGUAL DAILY Label Comments: DISSOLVE 1 & 1/2 TABLET UNDER THE TONGUE ONCE DAILY DIRECTED Referrals Follow up/Referrals: Provider,Referral, MD [Primary Care Provider] - See instructions Activity Restrictions/Add. Instructions Additional Instructions/Restrictions: Zofran as needed for nausea and vomiting. Ibuprofen or Tylenol as needed for pain. Rest and drink plenty of fluids. Follow-up with primary care provider if not improving in 2 to 3 days. Clinical Impressions Clinical Impression: Vomiting, Low back pain, Kidney, medullary sponge Stand Alone Forms Stand Alone Forms: Work/School Release Instructions Patient Instructions: DI for Low Back Pain, DI for Vomiting -- Adult Discharge ED Provider: Ranjith Parnell General Adult HPI General Chief complaint: Back Pain/Injury Stated complaint: vomiting,back pain Time Seen by Provider: 10/01/22 09:00 Mode of Arrival: Wheelchair Source of Information: Patient Limitations: No Limitations Description of Symptoms (Recalled from ER Triage Doc. by RN): pt to ed c/o lower back pain and n/v since yesterday morning. pt denies abd pain or urinary symptoms. History of Present Illness HPI narrative: States that she woke up vomiting yesterday morning. Profuse amount of vomiting. States that she is vomiting up some chalky stuff that taste like medicine. She has diffuse lower lumbar back pain. No diarrhea. Last bowel movement 2 days ago. No fever. No urinary symptoms. No injury. No abdominal pain. No history of kidney stone. She does not know when her last menstrual cycle was, states that she has an IUD. Related Data Home Medications Medication Instructions Recorded Confirmed buprenorphine 8 mg-naloxone 2 mg 1.5 tab sublingual DAILY addiction 07/25/22 08/27/22 sublingual tablet Previous Rx's Medication Instructions Recorded ketorolac 10 mg tablet 10 mg PO Q8H 3 days #9 tabs 08/28/22 levofloxacin 500 mg tablet 500 mg PO DAILY #7 tabs 08/28/22 metronidazole 500 mg tablet 500 mg PO BID #20 tabs 08/28/22 ondansetron 4 mg disintegrating 4 mg PO Q8H PRN nausea and 10/01/22 tablet vomiting #7 tabs Allergies Allergy/AdvReac Type Severity Reaction Status Date / Time amoxicillin [AMOXICILLIN] Allergy Unknown Verified 05/24/20 10:32 [facility] Disclaimer: The information contained in this section may have been updated after the patient was seen, as this information can be updated by other users. Medical History Opioid dependence Surgical History Hx of appendectomy Hx of cholecystectomy Social History Smoking Status: Current every day smoker tobacco type: cigarettes packs per day: 5 alcohol intake: never substance use type: former substance user current occupational status: other Travel in the last 8 weeks: None household members: significant other and children ROS Obtained: Yes Systems reviewed as appropriate & no additional complaints except as documented Constitutional Constitutional: Denies fever(s), Denies headache(s) and Denies weakness ENT Ears, Nose, Mouth, and Throat: Denies headache(s), Denies nasal discharge and Denies sore throat Cardiovascular Cardiovascular: Denies chest pain Respiratory Respiratory: Denies shortness of breath and Denies cough Gastrointestinal Gastrointestingal: R
--- NOTE | 2022-10-01 09:18 | PC.NURSE ---
Pt to CT via wheelchair
[2022-10-01 09:23] LABS: Amphetamine/Metha Screen,Urine Negative ng/ml (<1000)
[2022-10-01 09:24] LABS: Barbiturates Screen,Urine Negative ng/ml (<200); Benzodiazepines Screen,Urine Negative ng/ml (<200)
[2022-10-01 09:25] LABS: Cannabinoid Screen,Urine Positive ng/ml (<50); Cocaine Screen,Urine Negative ng/ml (<300)
[2022-10-01 09:25] LABS: Chloride 98 mmol/L (98-107); Sodium 134 mmol/L (136-145)
[2022-10-01 09:26] LABS: Methadone Screen,Urine Negative ng/ml (<300)
[2022-10-01 09:26] LABS: Basophils % 0.4 % (0.1-2.0); Eosinophils # 0.1 K/mm3 (0.0-0.4); Eosinophils % 0.5 % (0.1-12.0); Hematocrit 43.1 % (37.0-47.0); Hemoglobin 14.3 g/dL (12.2-16.2); Lymphocytes # 0.8 K/mm3 (0.7-4.5); Lymphocytes % 8.1 % (10-50); Mean Corpuscular HGB Conc 33.1 g/dL (31.8-35.4); Mean Corpuscular Volume 96.8 fl (81-99); Mean Platelet Volume 8.9 fl (7.4-10.4); Monocytes # 0.7 K/mm3 (0.1-1.0); Neutrophils # 8.2 K/mm3 (1.8-7.8); Platelet Count 228 K/mm3 (142-424); Potassium 3.6 mmoL/L (3.5-5.1); Red Blood Count 4.45 M/mm3 (4.20-5.40); Red Cell Distribution Width 11.8 % (11.5-17.5); White Blood Count 9.8 K/mm3 (4.8-10.8)
[2022-10-01 09:27] LABS: Opiate Screen,Urine Negative ng/ml (<300); Phencyclidine Screen,Urine Negative ng/ml (<25)
[2022-10-01 09:28] LABS: Alanine Aminotransferase 16 U/L (12-78); Albumin Level 4.2 g/dl (3.5-5.0); Albumin/Globulin Ratio 1.4 (1.1-1.8); Alkaline Phosphatase 75 U/L (38-126); Anion Gap 9.6 mEq/L (5-15); Aspartate Amino Transferase 26 U/L (14-36); Bilirubin,Total 0.5 mg/dl (0.2-1.3); Blood Urea Nitrogen 10 mg/dl (7-17); Calcium 8.7 mg/dl (8.4-10.2); Carbon Dioxide 30 mmol/L (22.0-30.0); Creatinine Clearance Estimated 144 mL/min (50-200); Estimated Glomerular Filt Rate 147 ml/min (>60); GFR (African American) 178 ML/MIN (>60); Globulin 2.9 g/dL (1.3-3.2); Glucose 115 mg/dl (74-100); Lipase 24 U/L (23-300); Total Protein,Serum 7.1 g/dl (6.3-8.2)
--- NOTE | 2022-10-01 09:28 | PC.NURSE ---
rounded on pt at this time. pt resting in bed. grandmother at the bedside.
[2022-10-01 09:30] VITALS: BP 119/49; PULSE 63; O2SAT 96
[2022-10-01 10:00] VITALS: BP 110/58; PULSE 72; O2SAT 97
--- NOTE | 2022-10-01 10:01 | PC.NURSE ---
rounded on pt she asleep, family @ bs
[2022-10-01 10:30] VITALS: BP 116/56; PULSE 67; O2SAT 95
[2022-10-01 11:00] VITALS: BP 126/59; PULSE 66; O2SAT 96
--- NOTE | 2022-10-01 11:11 | PC.NURSE ---
spoke to radiology the prelim is still locked it will be a little longer
[2022-10-01 12:01] VITALS: BP 119/51; PULSE 67; RESP 18; TEMP 36.8; O2SAT 99
== END 2022-10-01 11:45 | disposition home or self-care (01) ==
PROVIDERS: Emergency Provider Emergency Medicine
DX: R11.2 Nausea with vomiting, unspecified (principal); M54.50 Low back pain, unspecified; Q61.5 Medullary cystic kidney
CPT/HCPCS: 74176; 80053; 80305; 81001; 81025; 83690; 85025; 87086; 96360; 96374; 96375; 99284; 99285; J2405

== ENCOUNTER 2023-03-01 16:16 | Emergency (ER) | payer MEDICAID, SELFPAY ==
[2023-03-01 17:16] VITALS: BP 111/52; PULSE 85; RESP 16; TEMP 36.9; O2SAT 98; BMI 20.3
[2023-03-01 17:39] LABS: Basophils % 0.2 % (0.1-2.0); Eosinophils % 0.6 % (0.1-12.0); Hematocrit 40.7 % (37.0-47.0); Hemoglobin 13.7 g/dL (12.2-16.2); Lymphocytes # 1.2 K/mm3 (0.7-4.5); Mean Corpuscular HGB Conc 33.6 g/dL (31.8-35.4); Mean Corpuscular Hemoglobin 32.6 pg (27.0-31.2); Mean Corpuscular Volume 96.9 fl (81-99); Mean Platelet Volume 8.9 fl (7.4-10.4); Monocytes # 0.4 K/mm3 (0.1-1.0); Monocytes % 6.3 % (1.7-9.3); Neutrophils # 5.2 K/mm3 (1.8-7.8); Platelet Count 265 K/mm3 (142-424); White Blood Count 6.9 K/mm3 (4.8-10.8)
[2023-03-01 17:41] LABS: Chloride 97 mmol/L (98-107)
[2023-03-01 17:42] LABS: Potassium 3.6 mmoL/L (3.5-5.1); Sodium 138 mmol/L (136-145)
--- NOTE | 2023-03-01 17:43 | HMH.EDGENADL ---
Discharge Plan Disposition Patient Disposition: Home, Self-Care Condition: Good Prescriptions Prescriptions: No Action metronidazole 500 mg Tablet 500 mg PO BID Qty: 20 0RF levofloxacin 500 mg tablet 500 mg PO DAILY Qty: 7 0RF ketorolac 10 mg tablet 10 mg PO Q8H 3 Days Qty: 9 0RF ondansetron 4 mg tablet,disintegrating 4 mg PO Q8H PRN (Reason: nausea and vomiting) Qty: 7 0RF buprenorphine-naloxone 8-2 mg tablet, sublingual 1.5 tab SUBLINGUAL DAILY Patient Comments: DISSOLVE 1 & 1/2 TABLET UNDER THE TONGUE ONCE DAILY DIRECTED Referrals Follow up/Referrals: Ghassan Tirado [Primary Care Provider] - See instructions Activity Restrictions/Add. Instructions Additional Instructions/Restrictions: Please return to the emergency department if you experience any new or worsening symptoms. Clinical Impressions Clinical Impression: Acute dehydration Instructions Patient Instructions: DI for Nausea -- Adult Discharge ED Provider: Matt Dickey Adult HPI General Chief complaint: Nausea/Vomiting/Diarrhea Stated complaint: vomiting Time Seen by Provider: 03/01/23 17:43 Mode of Arrival: Ambulatory Source of Information: Patient Limitations: No Limitations Description of Symptoms (Recalled from ER Triage Doc. by RN): 27 yo F presents to ED with c/o ongoing vomitting for 4 days. pt rerpots no diarrhea, cough. History of Present Illness HPI narrative: Patient presents for evaluation of nonbloody nonbilious bilious emesis with no associated fevers or sick contacts, gradual in onset starting 4 days ago, constant, stable in course, previous therapies include home Zofran with some improvement of symptoms, has had similar symptoms before of idiopathic nature, no abdominal surgical history, no drug use, denies any alcohol intake, no exacerbating or alleviating factors. No chest pain or palpitations. No urinary symptoms. Related Data Home Medications Medication Instructions Recorded Confirmed buprenorphine 8 mg-naloxone 2 mg 1.5 tab sublingual DAILY addiction 07/25/22 08/27/22 sublingual tablet Previous Rx's Medication Instructions Recorded ketorolac 10 mg tablet 10 mg PO Q8H 3 days #9 tabs 08/28/22 levofloxacin 500 mg tablet 500 mg PO DAILY #7 tabs 08/28/22 metronidazole 500 mg tablet 500 mg PO BID #20 tabs 08/28/22 ondansetron 4 mg disintegrating 4 mg PO Q8H PRN nausea and 10/01/22 tablet vomiting #7 tabs Allergies Allergy/AdvReac Type Severity Reaction Status Date / Time amoxicillin [AMOXICILLIN] Allergy Unknown Verified 05/24/20 10:32 [facility] Disclaimer: The information contained in this section may have been updated after the patient was seen, as this information can be updated by other users. Medical History Opioid dependence Surgical History Hx of appendectomy Hx of cholecystectomy Social History Smoking Status: Current every day smoker tobacco type: cigarettes packs per day: 5 alcohol intake: never substance use type: former substance user current occupational status: other Travel in the last 8 weeks: None household members: significant other and children ROS Obtained: Yes Systems reviewed as appropriate & no additional complaints except as documented Physical Exam General General appearance: alert and in no apparent distress Head Head exam: atraumatic and normocephalic Eye Eye exam: Present normal appearance Neck Neck exam: Present normal inspection Chest Chest inspection: Present normal inspection and symmetric chest wall rise Respiratory Respiratory exam: Present normal lung sounds bilaterally; Absent respiratory distress Cardiovascular Cardiovascular exam: Present regular rate and normal rhythm Abdominal Exam Abdominal exam: Present soft Neurological Exam Neurol
[2023-03-01 17:44] LABS: Alanine Aminotransferase 25 U/L (12-78); Alkaline Phosphatase 74 U/L (38-126); Anion Gap 13.6 mEq/L (5-15); Aspartate Amino Transferase 45 U/L (14-36); Bilirubin,Total 0.4 mg/dl (0.2-1.3); Blood Urea Nitrogen 16 mg/dl (7-17); Carbon Dioxide 31 mmol/L (22.0-30.0); Creatinine Clearance Estimated 115 mL/min (50-200); Estimated Glomerular Filt Rate 119 ml/min (>60); GFR (African American) 144 ML/MIN (>60); Lipase 25 U/L (23-300)
[2023-03-01 17:45] LABS: Albumin Level 4.1 g/dl (3.5-5.0); Albumin/Globulin Ratio 1.3 (1.1-1.8); Calcium 9.7 mg/dl (8.4-10.2); Globulin 3.1 g/dL (1.3-3.2); Glucose 104 mg/dl (74-100); Total Protein,Serum 7.2 g/dl (6.3-8.2)
[2023-03-01 17:49] LABS: HCG Qualitative, Serum Negative (Negative)
[2023-03-01 19:31] VITALS: BP 117/72; PULSE 68; RESP 18; TEMP 36.8; O2SAT 98
== END 2023-03-01 19:33 | disposition home or self-care (01) ==
PROVIDERS: Emergency Provider Emergency Medicine; PCP Pediatrics
DX: E86.0 Dehydration (principal); R11.10 Vomiting, unspecified; F17.210 Nicotine dependence, cigarettes, uncomplicated
CPT/HCPCS: 80053; 83690; 84703; 85025; 96361; 96374; 99285; J2405

== ENCOUNTER 2023-04-23 17:20 | Emergency (ER) | payer MEDICAID, SELFPAY ==
[2023-04-23 17:21] VITALS: BP 126/71; PULSE 88; RESP 16; TEMP 36.6; O2SAT 100; BMI 19.5
--- NOTE | 2023-04-23 17:46 | HMH.EDGENADL ---
Discharge Plan Disposition Patient Disposition: Home, Self-Care Prescriptions Prescriptions: New clindamycin HCl 150 mg capsule 450 mg PO TID 10 Days Qty: 90 0RF ondansetron 4 mg tablet,disintegrating 4 mg PO Q6H PRN (Reason: nausea and vomiting) Qty: 10 0RF No Action metronidazole 500 mg Tablet 500 mg PO BID Qty: 20 0RF levofloxacin 500 mg tablet 500 mg PO DAILY Qty: 7 0RF ketorolac 10 mg tablet 10 mg PO Q8H 3 Days Qty: 9 0RF ondansetron 4 mg tablet,disintegrating 4 mg PO Q8H PRN (Reason: nausea and vomiting) Qty: 7 0RF buprenorphine-naloxone 8-2 mg tablet, sublingual 1.5 tab SUBLINGUAL DAILY Patient Comments: DISSOLVE 1 & 1/2 TABLET UNDER THE TONGUE ONCE DAILY DIRECTED Referrals Follow up/Referrals: Ghassan Tirado [Primary Care Provider] - See instructions Activity Restrictions/Add. Instructions Additional Instructions/Restrictions: Call your family doctor to establish care for this visit to the emergency department and schedule follow-up within 48 hours to ensure improvement. If you have any worsening of your condition or any other concerning signs or symptoms, return to the emergency department or your primary care doctor for further evaluation. Clindamycin 3 times daily for 10 days and follow-up with dentistry Clinical Impressions Clinical Impression: Abscess, periapical Discharge ED Provider: Rolan Gates General Adult HPI General Chief complaint: Dental/Oral Stated complaint: right side jaw pain and swelling, vomiting Time Seen by Provider: 04/23/23 17:22 Mode of Arrival: Ambulatory Source of Information: Patient Limitations: No Limitations Description of Symptoms (Recalled from ER Triage Doc. by RN): Presents to ED with c/o 12/19 jaw pain/swelling that started on Wednesday. Patient denies recent dental surgeries/procedures. Patient reports tenderness. +vomiting. -Fever History of Present Illness HPI narrative: 28-year-old female history of dental cavities presenting with right-sided facial swelling. Started 2 days ago. She was trying to put it off until she follow-up with dentistry, but today, 04/23, woke up and vomited. Nonbloody, nonbilious. Denies fevers, chills, voice changes, difficulty with range of motion of neck, difficulty or pain with swallowing, or any other concerns. Related Data Home Medications Medication Instructions Recorded Confirmed buprenorphine 8 mg-naloxone 2 mg 1.5 tab sublingual DAILY addiction 07/25/22 08/27/22 sublingual tablet Previous Rx's Medication Instructions Recorded ketorolac 10 mg tablet 10 mg PO Q8H 3 days #9 tabs 08/28/22 levofloxacin 500 mg tablet 500 mg PO DAILY #7 tabs 08/28/22 metronidazole 500 mg tablet 500 mg PO BID #20 tabs 08/28/22 ondansetron 4 mg disintegrating 4 mg PO Q8H PRN nausea and 10/01/22 tablet vomiting #7 tabs clindamycin HCl 150 mg capsule 450 mg PO TID 10 days #90 caps 04/23/23 ondansetron 4 mg disintegrating 4 mg PO Q6H PRN nausea and 04/23/23 tablet vomiting #10 tabs Allergies Allergy/AdvReac Type Severity Reaction Status Date / Time amoxicillin [AMOXICILLIN] Allergy Unknown Verified 05/24/20 10:32 [facility] Disclaimer: The information contained in this section may have been updated after the patient was seen, as this information can be updated by other users. Medical History Opioid dependence Surgical History Hx of appendectomy Hx of cholecystectomy Social History Smoking Status: Current every day smoker tobacco type: cigarettes packs per day: 5 alcohol intake: never substance use type: former substance user current occupational status: other Travel in the last 8 weeks: None household members: significant other and children ROS Obtained: Yes All systems reviewed & no additional complaints
[2023-04-23 17:53] VITALS: BP 112/67; PULSE 85; RESP 16; TEMP 36.8; O2SAT 97
== END 2023-04-23 17:54 | disposition home or self-care (01) ==
PROVIDERS: Emergency Provider Emergency Medicine; PCP Pediatrics
DX: K04.7 Periapical abscess without sinus (principal); R11.2 Nausea with vomiting, unspecified; F11.11 Opioid abuse, in remission; F17.210 Nicotine dependence, cigarettes, uncomplicated
CPT/HCPCS: 99282

== ENCOUNTER 2023-07-09 15:38 | Emergency (ER) | payer OTHER, SELFPAY ==
[2023-07-09 15:39] VITALS: BP 134/67; PULSE 80; RESP 20; TEMP 36.6; O2SAT 99; BMI 19.7
[2023-07-09 16:30] VITALS: BP 111/79; PULSE 83; O2SAT 98
--- NOTE | 2023-07-09 16:40 | HMH.EDGENADL ---
Discharge Plan Disposition Patient Disposition: Home, Self-Care Prescriptions Prescriptions: New ondansetron 4 mg tablet,disintegrating 4 mg PO Q6H PRN (Reason: nausea and vomiting) 5 Days Qty: 20 0RF No Action metronidazole 500 mg Tablet 500 mg PO BID Qty: 20 0RF levofloxacin 500 mg tablet 500 mg PO DAILY Qty: 7 0RF ketorolac 10 mg tablet 10 mg PO Q8H 3 Days Qty: 9 0RF ondansetron 4 mg tablet,disintegrating 4 mg PO Q8H PRN (Reason: nausea and vomiting) Qty: 7 0RF buprenorphine-naloxone 8-2 mg tablet, sublingual 1.5 tab SUBLINGUAL DAILY Patient Comments: DISSOLVE 1 & 1/2 TABLET UNDER THE TONGUE ONCE DAILY DIRECTED clindamycin HCl 150 mg capsule 450 mg PO TID 10 Days Qty: 90 0RF ondansetron 4 mg tablet,disintegrating 4 mg PO Q6H PRN (Reason: nausea and vomiting) Qty: 10 0RF Referrals Follow up/Referrals: Ghassan Tirado [Primary Care Provider] - See instructions Clinical Impressions Clinical Impression: Nausea & vomiting, Acute dehydration Instructions Patient Instructions: DI for Diarrhea and Traveler's Diarrhea -- Adult, DI for Diarrhea and Traveler's Diarrhea -- Child, DI for Nausea -- Adult, DI for Nausea -- Child Discharge ED Provider: Bora Gerber General Adult HPI General Chief complaint: Nausea/Vomiting/Diarrhea Stated complaint: vomiting, bilateral leg/foot pain Time Seen by Provider: 07/09/23 16:35 Mode of Arrival: Ambulatory Source of Information: Patient Limitations: No Limitations Description of Symptoms (Recalled from ER Triage Doc. by RN): vomiting for two days with no pain and yellow in color. pt has had gallbladder removed and has no hx of pancreatitis. has not taken any meds at home for it History of Present Illness HPI narrative: Is a 28-year-old female with a history of chronic marijuana use presenting today with cyclical vomiting. She states that she has had the symptoms before typically improves with IV fluids. Has not tried any type of warm shower warm bath. Denies any abdominal pain states she has not had a bowel movement is not passing gas but denies any significant abdominal pain. Vomit has had no blood in it no bilious emesis as well. No fevers or chills no sick contacts or respiratory symptoms denies any other medical problems. Related Data Home Medications Medication Instructions Recorded Confirmed buprenorphine 8 mg-naloxone 2 mg 1.5 tab sublingual DAILY addiction 07/25/22 08/27/22 sublingual tablet Previous Rx's Medication Instructions Recorded ketorolac 10 mg tablet 10 mg PO Q8H 3 days #9 tabs 08/28/22 levofloxacin 500 mg tablet 500 mg PO DAILY #7 tabs 08/28/22 metronidazole 500 mg tablet 500 mg PO BID #20 tabs 08/28/22 ondansetron 4 mg disintegrating 4 mg PO Q8H PRN nausea and 10/01/22 tablet vomiting #7 tabs clindamycin HCl 150 mg capsule 450 mg PO TID 10 days #90 caps 04/23/23 ondansetron 4 mg disintegrating 4 mg PO Q6H PRN nausea and 04/23/23 tablet vomiting #10 tabs ondansetron 4 mg disintegrating 4 mg PO Q6H PRN nausea and 07/09/23 tablet vomiting 5 days #20 tabs Allergies Allergy/AdvReac Type Severity Reaction Status Date / Time amoxicillin [AMOXICILLIN] Allergy Unknown Verified 05/24/20 10:32 [facility] Disclaimer: The information contained in this section may have been updated after the patient was seen, as this information can be updated by other users. Medical History Opioid dependence Surgical History Hx of appendectomy Hx of cholecystectomy Social History Smoking Status: Current every day smoker tobacco type: cigarettes packs per day: 5 alcohol intake: never substance use type: former substance user current occupational status: other Travel in the last 8 weeks: None household members: significant other and children ROS Obtained: Yes All systems reviewed & no additional complaints except as documented Physical Exam General General appearance: alert Respiratory Respiratory exam: Present normal lung sounds bilaterally Cardiovascular Cardiovascular exam: Present regular rate; Absent tachycardia Abdominal Exam Abdominal exam: Present soft; Absent distention or tenderness Neurological Exam Neurological exam: Present alert and oriented X3 Medical Decision Making Oli Inquiry Pt receiving controlled substance: No Vital Signs: 07/09/23 15:39 07/09/23 16:30 07/09/23 17:00 Temperature 97.8 F Temperature Source Oral Pulse Rate 83 75 Pulse Rate [Right Radial] 80 Respiratory Rate 20 Blood Pressure 111/79 111/73 Blood Pressure [Right Arm] 134/67 Blood Pressure Mean 91 83 Blood Pressure Mean [Right Arm] 89 02 Sat by Pulse Oximetry 99 98 97 Oxygen Delivery Method Room Air Room Air Room Air 07/09/23 17:30 Temperature Temperature Source Pulse Rate 74 Pulse Rate [Right Radial] Respiratory Rate Blood Pressure 123/67 Blood Pressure [Right Arm] Blood Pressure Mean 83 Blood Pressure Mean [Right Arm] 02 Sat by Pulse Oximetry 100 Oxygen Delivery Method Room Air Lab Data Lab results reviewed: Yes I reviewed the patient's lab results. Lab Results 07/09/23 16:47: WBC 7.7, RBC 4.63, Hgb 15.4, Hct 44.8, MCV 96.8, MCH 33.3 H, MCHC 34.4, RDW 12.0, Plt Count 300, MPV 8.4, Neut % (Auto) 80.0, Lymph % (Auto) 15.0, [place] % (Auto) 4.1, Eos % (Auto) 0.5, Baso % (Auto) 0.4, Neut # (Auto) 6.2, Lymph # (Auto) 1.2, [place] # (Auto) 0.3, Eos # (Auto) 0.0, Baso # (Auto) 0.0, Sodium 138, Potassium 3.9, Chloride 100, Carbon Dioxide 28, Anion Gap 13.9, BUN 20 H, Creatinine 0.60, Estimated Creat Clear 114, Estimated GFR 118, Est GFR ( Amer) 143, Glucose 101 H, Calcium 9.0, Total Bilirubin 0.5, AST 30, ALT 19, Alkaline Phosphatase 64, Total Protein 7.8, Albumin 4.5, Globulin 3.3 H, Albumin/Globulin Ratio 1.4, Lipase 41 07/09/23 16:47 07/09/23 16:47 Orders (Tests/Meds): ED MEDICATIONS Generic Name Dose Route Start Last Admin Trade Name Freq PRN Reason Stop Dose Admin Sodium Chloride 10 ml 07/09/23 16:50 Sodium Chloride 0.9% 10ml Flush Syringe IV 08/08/23 16:49 NEEDED PRN Maintain IV Site Discontinued Medications Generic Name Dose Route Start Last Admin Trade Name Senia PRN Reason Stop Dose Admin Lactated Ringer's 1,000 mls @ 999 mls/hr 07/09/23 16:45 07/09/23 16:48 Lactated Ringer's 1000 Ml Bag IV 07/09/23 17:45 999 mls/hr .Q1H1M DINA Administration Ondansetron HCl 4 mg 07/09/23 16:38 07/09/23 16:48 Ondansetron 4mg/2ml Vial IV 07/09/23 16:39 4 mg ONCE ONE Administration ORDERS Category Date Time Status CBC w/Auto Diff [Complete Blood Count Auto Diff] Stat Lab 07/09/23 16:47 Completed CMP [Comprehensive Metabolic Panel] Stat Lab 07/09/23 16:47 Completed Lipase Stat Lab 07/09/23 16:47 Completed Medical Decision Narrative: 28-year-old female with a benign abdominal exam presented there with nausea and vomiting most likely is cyclical vomiting associated with cannabinol hyperemesis. Will give IV fluids and Zofran check basic electrolytes and reassess Assessment 6:03 PM patient tolerating p.o. feeling much better serial abdominal exams are benign IV fluids completed patient given a prescription of Zofran to go home with and return precautions emphasized. She was discharged in improved and stable condition Critical Care Critical Care Time Critical Care Time: No
[2023-07-09] MEDS: LACTATED RINGERS 1000ML 1,000 ML 999 ML IV (16:48)
[2023-07-09] MEDS: ONDANSETRON 4MG/2ML VIAL 4 MG IV (16:48)
[2023-07-09 16:57] LABS: Basophils % 0.4 % (0.1-2.0); Eosinophils % 0.5 % (0.1-12.0); Hematocrit 44.8 % (37.0-47.0); Hemoglobin 15.4 g/dL (12.2-16.2); Lymphocytes # 1.2 K/mm3 (0.7-4.5); Mean Corpuscular HGB Conc 34.4 g/dL (31.8-35.4); Mean Corpuscular Hemoglobin 33.3 pg (27.0-31.2); Mean Corpuscular Volume 96.8 fl (81-99); Mean Platelet Volume 8.4 fl (7.4-10.4); Monocytes # 0.3 K/mm3 (0.1-1.0); Monocytes % 4.1 % (1.7-9.3); Neutrophils # 6.2 K/mm3 (1.8-7.8); Platelet Count 300 K/mm3 (142-424); Red Blood Count 4.63 M/mm3 (4.20-5.40); White Blood Count 7.7 K/mm3 (4.8-10.8)
[2023-07-09 17:00] VITALS: BP 111/73; PULSE 75; O2SAT 97
[2023-07-09 17:23] LABS: Chloride 100 mmol/L (98-107)
[2023-07-09 17:24] LABS: Potassium 3.9 mmoL/L (3.5-5.1); Sodium 138 mmol/L (136-145)
[2023-07-09 17:26] LABS: Alanine Aminotransferase 19 U/L (12-78); Albumin Level 4.5 g/dl (3.5-5.0); Albumin/Globulin Ratio 1.4 (1.1-1.8); Alkaline Phosphatase 64 U/L (38-126); Anion Gap 13.9 mEq/L (5-15); Aspartate Amino Transferase 30 U/L (14-36); Bilirubin,Total 0.5 mg/dl (0.2-1.3); Blood Urea Nitrogen 20 mg/dl (7-17); Carbon Dioxide 28 mmol/L (22.0-30.0); Creatinine Clearance Estimated 114 mL/min (50-200); Estimated Glomerular Filt Rate 118 ml/min (>60); GFR (African American) 143 ML/MIN (>60); Globulin 3.3 g/dL (1.3-3.2); Glucose 101 mg/dl (74-100); Lipase 41 U/L (23-300); Total Protein,Serum 7.8 g/dl (6.3-8.2)
[2023-07-09 17:30] VITALS: BP 123/67; PULSE 74; O2SAT 100
[2023-07-09 18:09] VITALS: BP 124/63; PULSE 76; RESP 18; TEMP 36.7; O2SAT 98
== END 2023-07-09 18:11 | disposition home or self-care (01) ==
PROVIDERS: Emergency Provider Student in an Organized Health Care Education/Training Program; PCP Pediatrics
DX: E86.0 Dehydration (principal); R11.2 Nausea with vomiting, unspecified; F17.210 Nicotine dependence, cigarettes, uncomplicated
CPT/HCPCS: 80053; 83690; 85025; 96361; 96374; 99284; J2405

== ENCOUNTER 2024-05-26 13:29 | Emergency (ER) | payer OTHER, SELFPAY ==
[2024-05-26 13:31] VITALS: BP 123/78; PULSE 86; RESP 20; TEMP 36.8; O2SAT 98; BMI 18.7
--- NOTE | 2024-05-26 14:14 | HMH.EDGENADL ---
Discharge Plan Disposition Patient Disposition: Home, Self-Care Condition: Good Prescriptions Prescriptions: New hydroxyzine HCl 25 mg tablet 25 mg PO Q8H PRN (Reason: nausea and vomiting) Qty: 20 0RF No Action metronidazole 500 mg Tablet 500 mg PO BID Qty: 20 0RF levofloxacin 500 mg tablet 500 mg PO DAILY Qty: 7 0RF ketorolac 10 mg tablet 10 mg PO Q8H 3 Days Qty: 9 0RF ondansetron 4 mg tablet,disintegrating 4 mg PO Q8H PRN (Reason: nausea and vomiting) Qty: 7 0RF buprenorphine-naloxone 8-2 mg tablet, sublingual 1.5 tab SUBLINGUAL DAILY Patient Comments: DISSOLVE 1 & 1/2 TABLET UNDER THE TONGUE ONCE DAILY DIRECTED clindamycin HCl 150 mg capsule 450 mg PO TID 10 Days Qty: 90 0RF ondansetron 4 mg tablet,disintegrating 4 mg PO Q6H PRN (Reason: nausea and vomiting) Qty: 10 0RF ondansetron 4 mg tablet,disintegrating 4 mg PO Q6H PRN (Reason: nausea and vomiting) 5 Days Qty: 20 0RF Referrals Follow up/Referrals: Provider,Referral, MD [Primary Care Provider] - See instructions Activity Restrictions/Add. Instructions Additional Instructions/Restrictions: Please follow-up with the mental health specialist for further treatment. I have prescribed a medication that can help with your nausea as well as anxiety. Please take it as needed. Please return with any new or worsening symptoms. Clinical Impressions Clinical Impression: Nausea Instructions Patient Instructions: DI for Diarrhea and Traveler's Diarrhea -- Adult, DI for Diarrhea and Traveler's Diarrhea -- Child, DI for Nausea -- Adult, DI for Nausea -- Child Print Language Print Language: Syriac Discharge ED Provider: Matt Dickey Adult HPI General Chief complaint: Nausea/Vomiting/Diarrhea Stated complaint: vomiting not able to urinate Time Seen by Provider: 05/26/24 14:14 Mode of Arrival: Ambulatory Source of Information: Patient Limitations: No Limitations Description of Symptoms (Recalled from ER Triage Doc. by RN): pt states she is here today for vomiting and hasnt peed or pooped in several days, pt does say she smokes weed but hasnt lately and she is on suboxone History of Present Illness HPI narrative: The patient presents with a chief complaint of general malaise and decreased appetite. She reports feeling extremely tired and has been experiencing these symptoms for an unspecified duration. The patient denies any pain but mentions a reduced intake of food and fluids. She has not been experiencing any nausea or vomiting and denies the presence of blood in her vomit. The patient reports not having a bowel movement for over four days and denies any pain with urination. The patient does not report any known medical conditions or daily medications. She acknowledges feeling stressed recently but is unsure if this is the cause of her symptoms. The patient is concerned about the possibility of dehydration. The patient denies any abdominal pain upon palpation, shortness of breath, chest pain, or fevers. She has no known mental health diagnoses, such as depression or anxiety, and denies any thoughts of self-harm or harm to others. The patient expresses interest in receiving assistance with her mental health and is open to being connected with a mental health professional. It appears that the patient's fatigue was the first symptom to appear, with the patient stating, I just got really tired. The patient also confirms that she has had not much to eat or drink and expresses concern about potentially getting pretty dehydrated. Please note that above description of symptoms, in this electronic medical record under categorization of recalled from ER triage doctor by RN are reflective of an initial nursing assessment, however, is not reflective of my full history and physical exam that was personally taken and clarified. Consequentially, this preceding description of symptoms, which may include the patient's categorized chief complaint in the EMR, do not reflect my personal clinical impression, and the ultimate description of history of present illness and patient stated complaints should be deferred to this section of the note. Unless stated otherwise or congruent with this section of the note, additional signs, symptoms, or incongruence should be interpreted as inaccurate with my clinical impression. Related Data Home Medications ?Medication ?Instructions ?Recorded ?Confirmed buprenorphine 8 mg-naloxone 2 mg 1.5 tab sublingual DAILY addiction 07/25/22 08/27/22 sublingual tablet Previous Rx's ?Medication ?Instructions ?Recorded ketorolac 10 mg tablet 10 mg PO Q8H 3 days #9 tabs 08/28/22 levofloxacin 500 mg tablet 500 mg PO DAILY #7 tabs 08/28/22 metronidazole 500 mg tablet 500 mg PO BID #20 tabs 02/17/23 ondansetron 4 mg disintegrating 4 mg PO Q8H PRN nausea and 10/01/22 tablet vomiting #7 tabs clindamycin HCl 150 mg capsule 450 mg (3 x 150 mg) PO TID 10 days 04/23/23 #90 caps ondansetron 4 mg disintegrating 4 mg PO Q6H PRN nausea and 04/23/23 tablet vomiting #10 tabs ondansetron 4 mg disintegrating 4 mg PO Q6H PRN nausea and 07/09/23 tablet vomiting 5 days #20 tabs hydroxyzine HCl 25 mg tablet 25 mg PO Q8H PRN nausea and 05/26/24 vomiting #20 tabs Allergies Allergy/AdvReac Type Severity Reaction Status Date / Time amoxicillin (AMOXICILLIN) Allergy Unknown [facility]20 10[facility] Dis[facility]: The information contained in this section may have been updated after the patient was seen, as this information can be updated by other users. Medical History Opioid dependence Surgical History Hx of appendectomy Hx of cholecystectomy Social History Smoking Status: Current every day smoker tobacco type: cigarettes packs per day: 5 alcohol intake: never substance use type: former substance user current occupational status: other Travel in the last 8 weeks: None household members: significant other and children Other Medical History Have you received the Flu Vaccine for this season: No Have you received the Pneumonia Vaccine: No ROS Obtained: Yes other As per HPI Physical Exam General General appearance: alert and anxious Head Head exam: atraumatic and normocephalic Eye Eye exam: Present normal appearance Neck Neck exam: Present normal inspection Chest Chest inspection: Present normal inspection and symmetric chest wall rise Respiratory Respiratory exam: Present normal lung sounds bilaterally; Absent respiratory distress Cardiovascular Cardiovascular exam: Present regular rate and normal rhythm Abdominal Exam Abdominal exam: Present soft Neurological Exam Neurological exam: Present alert and oriented X3 Psychiatric Psychiatric exam: Present normal affect and normal mood Skin Skin exam: Present warm and dry Medical Decision Making Medical Records Medical records reviewed: Yes I reviewed the patient's medical records. Screening: Per USPSTF and CDC recommendations, given the prevalence of disease in our region, it is our hospital?s policy to screen for HIV and viral Hepatitis for all patients aged 18 and over and those with ongoing risk factors. Oli Inquiry Pt receiving controlled substance: No Vital Signs: 05/26/24 13:31 05/26/24 15:36 Temperature 98.2 F 98.2 F Temperature Source Oral Oral Pulse Rate 86 Pulse Rate [Right Radial] 86 Respiratory Rate 20 20 Blood Pressure 123/78 Blood Pressure [Right Arm] 123/78 Blood Pressure Mean [Right Arm] 93 Blood Pressure Source Automatic Cuff Blood Pressure Position Sitting 02 Sat by Pulse Oximetry 98 Oxygen Delivery Method Room Air Room Air Lab Data Lab Results 05/26/24 13:57: WBC 7.7, RBC 4.47, Hgb 15.1, Hct 43.0, MCV 96.2, MCH 33.7 H, MCHC 35.0, RDW 12.6, Plt Count 308, MPV 8.9, Neut % (Auto) 74.3, Lymph % (Auto) 18.7, [place] % (Auto) 5.7, Eos % (Auto) 0.7, Baso % (Auto) 0.6, Neut # (Auto) 5.7, Lymph # (Auto) 1.4, [place] # (Auto) 0.4, Eos # (Auto) 0.1, Baso # (Auto) 0.1, Sodium 136, Potassium 3.9, Chloride 102, Carbon Dioxide 23, Anion Gap 14.9, BUN 15, Creatinine 0.50 L, Estimated Creat Clear 128, Estimated GFR 145, Est GFR ( Amer) 175, Glucose 99, Calcium 9.2, Total Bilirubin 0.9, AST 33, ALT 18, Alkaline Phosphatase 51, Total Protein 7.7, Albumin 4.6, Globulin 3.1, Albumin/Globulin Ratio 1.5, Serum HCG, Qual Negative, Hepatitis C Antibody Non reactive, HIV 1&2 Antibody Rapid Nonreactive 05/26/24 13:57 05/26/24 13:57 Orders (Tests/Meds): ED MEDICATIONS Discontinued Medications Generic Name Dose Route Start Last Admin Trade Name Freq PRN Reason Stop Dose Admin Hydroxyzine Pamoate 50 mg 05/26/24 14:16 05/26/24 14:22 Hydroxyzine Pamoate 25mg Capsule PO 05/26/24 14:17 50 mg ONCE ONE Administration Sodium Chloride 10 ml 05/26/24 14:00 Sodium Chloride 0.9% 10ml Flush Syringe IV 06/25/24 13:59 NEEDED PRN Maintain IV Site ORDERS Category Date Time Status Consult Dishwashing Machine Operator [CONS] Routine Cons 05/26/24 14:16 Active CBC w/Auto Diff [Complete Blood Count Auto Diff] Stat Lab 05/26/24 13:57 Completed CMP [Comprehensive Metabolic Panel] Stat Lab 05/26/24 13:57 Completed HCG Qualitative, Serum Stat Lab 05/26/24 13:57 Completed HIV (1&2) Antibody Rapid Stat Lab 05/26/24 13:57 Completed Hep C Ab with Reflex to RNA Stat Lab 05/26/24 13:57 Completed Medical Decision Narrative: Patient with history and exam per above presenting for evaluation of concerns of anxiety and dehydration. Diagnoses considered include hypovolemia, MARITZA, panic attack, patient denies any suicidal ideation homicidal ideation nor exhibits any clinical evidence of bren, psychosis, self-injurious behavior. ED workup and treatment included: ED MEDICATIONS Discontinued Medications Generic Name Dose Route Start Last Admin Trade Name Freq PRN Reason Stop Dose Admin Hydroxyzine Pamoate 50 mg 05/26/24 14:16 05/26/24 14:22 Hydroxyzine Pamoate 25mg Capsule PO 05/26/24 14:17 50 mg ONCE ONE Administration Sodium Chloride 10 ml 05/26/24 14:00 Sodium Chloride 0.9% 10ml Flush Syringe IV 06/25/24 13:59 NEEDED PRN Maintain IV Site ORDERS Category Date Time Status Consult Dishwashing Machine Operator [CONS] Routine Cons 05/26/24 14:16 Active CBC w/Auto Diff [Complete Blood Count Auto Diff] Stat Lab 05/26/24 13:57 Completed CMP [Comprehensive Metabolic Panel] Stat Lab 05/26/24 13:57 Completed HCG Qualitative, Serum Stat Lab 05/26/24 13:57 Completed HIV (1&2) Antibody Rapid Stat Lab 05/26/24 13:57 Completed Hep C Ab with Reflex to RNA Stat Lab 05/26/24 13:57 Completed Labs were independently interpreted by me, significant for no acute findings I discussed my clinical impression with patient and answered all questions. At this time, the evidence for any other entities in the differential is insufficient to warrant any further testing or ED observation. This was explained to the patient. The patient was advised that persistent or worsening symptoms require further evaluation. Critical Care Critical Care Time Critical Care Time: No
[2024-05-26] MEDS: hydrOXYzine pamoate 25MG CAPSULE 50 MG PO (14:22)
[2024-05-26 14:27] LABS: Albumin Level 4.6 g/dl (3.5-5.0); Chloride 102 mmol/L (98-107); Potassium 3.9 mmoL/L (3.5-5.1); Sodium 136 mmol/L (136-145)
[2024-05-26 14:29] LABS: Basophils # 0.1 K/mm3 (0-0.2); Basophils % 0.6 % (0.1-2.0); Blood Urea Nitrogen 15 mg/dl (7-17); Eosinophils # 0.1 K/mm3 (0.0-0.4); Eosinophils % 0.7 % (0.1-12.0); Hemoglobin 15.1 g/dL (12.2-16.2); Lymphocytes # 1.4 K/mm3 (0.7-4.5); Lymphocytes % 18.7 % (10-50); Mean Corpuscular Hemoglobin 33.7 pg (27.0-31.2); Mean Corpuscular Volume 96.2 fl (81-99); Mean Platelet Volume 8.9 fl (7.4-10.4); Monocytes # 0.4 K/mm3 (0.1-1.0); Monocytes % 5.7 % (1.7-9.3); Neutrophils # 5.7 K/mm3 (1.8-7.8); Neutrophils % 74.3 % (37.0-80.0); Platelet Count 308 K/mm3 (142-424); Red Blood Count 4.47 M/mm3 (4.20-5.40); Red Cell Distribution Width 12.6 % (11.5-17.5); White Blood Count 7.7 K/mm3 (4.8-10.8)
[2024-05-26 14:30] LABS: Alanine Aminotransferase 18 U/L (12-78); Albumin/Globulin Ratio 1.5 (1.1-1.8); Alkaline Phosphatase 51 U/L (38-126); Anion Gap 14.9 mEq/L (5-15); Aspartate Amino Transferase 33 U/L (14-36); Bilirubin,Total 0.9 mg/dl (0.2-1.3); Calcium 9.2 mg/dl (8.4-10.2); Carbon Dioxide 23 mmol/L (22.0-30.0); Creatinine Clearance Estimated 128 mL/min (50-200); Estimated Glomerular Filt Rate 145 ml/min (>60); GFR (African American) 175 ML/MIN (>60); Globulin 3.1 g/dL (1.3-3.2); Glucose 99 mg/dl (74-100); Total Protein,Serum 7.7 g/dl (6.3-8.2)
[2024-05-26 14:31] LABS: HCG Qualitative, Serum Negative (Negative)
[2024-05-26 15:36] VITALS: BP 123/78; PULSE 86; RESP 20; TEMP 36.8; O2SAT 98
--- NOTE | 2024-05-26 15:59 | PEERSUPPORT ---
Peer Support Note Patient Information Patient Information: DOS:05/26/2024 ? Reason: HX MARIE- Emotional Support PS consult ? 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 She has reach monthly appointments as she has had no relapse and been compliant for a great deal of time. She says she is overwhelmed with certain situations in life and feeling hurt by significant people in her life. ? Ps provided empathetic listening to validate her feelings.? Pt confirms no desire to use at this time. ? Ps shares relevant personal stories to foster understanding and rapport with patient. ? Ps encourages her to utilize the services offered through [facility] such as therapy and peer support during these hardships as emotions can lead to a relapse. ? Pt identifies her therapist and supportive relationship with him as well as the peer support and spring encaser who can help her find resources to help her repair her vehicle. ? Plan of Action: Ps to check-in with pt on 05/27/2024 for support and processing any negative. Pt to journal for releasing negative emotions. Pt to use self-care, prayer, and gratitude mindfully. Ps provided printout for emotional intelligence practice. Ps and Pt will create a plan for scheduling [facility] therapy appointment on Wednesday05/29/2024. ? Thank you for allowing [facility] peer support to assist in caring for patient!
[2024-05-26 16:22] LABS: HIV (1&2) Antibody Rapid NONREACTIVE (NONREACTIVE)
[2024-05-27 12:12] LABS: HCV Ab Non Reactive (Non Reactive)
== END 2024-05-26 15:37 | disposition home or self-care (01) ==
PROVIDERS: Emergency Provider Emergency Medicine
DX: R19.7 Diarrhea, unspecified (principal); R11.0 Nausea
CPT/HCPCS: 80053; 84703; 85025; 86803; 87389; 99283

== ENCOUNTER 2025-04-05 15:49 | Emergency (ER) | payer OTHER, SELFPAY ==
[2025-04-05] VITALS (8 sets, daily range): BP systolic 89–124; BP diastolic 48–72; PULSE 83–124; RESP 16–20; TEMP 36.6; O2SAT 95–99; BMI 18.4
--- OUTSIDE RECORDS SUMMARY | 2025-04-05 16:14 | XMS_ITS | Clinical Summary ---
Author Organization Healthcare Address [address] [place] [address] Care Team Providers Care Sql Server Bi Developer Name Role Phone Ghassan Tirado MD Primary Care Provider [phone] Ravi Guerrero MD Unavailable Allergies Active Allergy Reactions Criticality Noted Date Comments Amoxicillin Hives Medium 01/15/2021 Social History Tobacco Use Types Packs/Day Years Used Date Smoking Tobacco: Every Day Smokeless Tobacco: Never Alcohol Use Standard Drinks/Week Comments No 0 (1 standard drink = 0.6 oz pur e alcohol) Comments Unknown Sex and Gender Information Value Date Recorded Sex Assigned at Not on file Legal Sex Female 6:42 PM EDT Gender Identity Not on file Sexual Orientation Not on file Last Filed Vital Signs Vital Sign Reading Time Taken Comments Blood Pressure 107/64 01/15/2021 7:15 PM EDT Pulse 74 01/15/2021 7:15 PM EDT Temperature 37.6 C (99.7 F) 01/15/2021 7:15 PM EDT Respiratory Rate 18 01/15/2021 7:15 PM EDT Oxygen Saturation 98% 01/15/2021 7:15 PM EDT Inhaled Oxygen Concentration - - Weight 58.5 kg (129 lb) 01/15/2021 4:41 PM EDT Height 162.6 cm (5' 4 ) 01/15/2021 4:41 PM EDT Body Mass Index 22.14 01/15/2021 4:41 PM EDT Plan of Treatment Health Maintenance Due Date Last Done Comments [facility]-Depression Screening 1994 [facility]-Infant/Child/Adol SDOH Screenings 1994 [facility]-Varicella Vaccines (1 of 2 - 13+ 2-dose series) 2007 [facility]- SDOH Screenings 2012 [facility]-Adult SDOH Screenings 2012 [facility]-DTaP,Tdap,and Td Vaccine s (1 - Tdap) 2013 [facility]-Hepatitis B Vaccines (1 of 3 - 19+ 3-dose series) 2013 HPV Vaccines (1 - 3-dose SCD M series) 2021 [facility]-Pap Smear 09/21/2021 09/21/2018 [facility]-Cervical Cancer Screening 2024 [facility]-HPV/Cotest 2024 09/21/2018 [id number] Vaccine (1 - 20 24-25 season) 2025 [facility]-Influenza Vaccine (#1) 2025 [facility]-Zoster Vaccines (1 of 2) 2044 [facility]-HIB Vaccines Aged Out No longer e ligible based on patient's age to complete this topic [facility]-Hepatitis A Vaccines Aged Out No longer eligible based on patient's age to complete this topic [facility]-IPV Vaccines Aged Out No longer e ligible based on patient's age to complete this topic [facility]-Pneumococcal Vaccine: Pediatrics (0 to 5 Years) and At-Risk Patients (6 to 49 Years) Aged Out No long er eligible based on patient's age to complete this topic [facility]-Rotavirus Vaccines Aged Out No lo nger eligible based on patient's age to complete this topic Procedures Procedure Name Priority Date/Time Associated Diagnosis Comments CYTO DATA CONVERSION Routine 09/21/2018 12:00 AM EDT from Last 3 Months or Most Recently Relevant to Health Maintenance Results * Cytology (09/21/2018 12:00 AM EDT) 09/21/2018 09/22/2018 9:5 1 AM EDT Narrative SUNQUEST - 09/26/2018 4:11 PM EDT [facility] MR #: [id number] [facility] [address] [place], [place] [address] 1995 (Age: 23) FW Collect Date: 09/21/2018 00:00 Receipt Date: 09/22/2018 09:51 Page 1 DEPARTMENT OF PATHOLOGY AND LABORATORY MEDICINE CYTOPATHOLOGY REPORT Email: [email or web address] [phone] ATTENDING MD/Practitioner: Jo Weinberg MD Service: [facility] Location: [facility] Reported: 09/26/2018 16:11 Collected: 09/21/2018 00:00 INTERPRETATION A. THIN PREP (CERVICAL/VAGINAL): NEGATIVE FOR INTRAEPITHELIAL LESION OR MALIGNANCY. SHIFT IN MIGUEL SUGGESTIVE OF BACTERIAL VAGINOSIS. SATISFACTORY FOR EVALUATION; ENDOCERVICAL/ TRANSFORMATION ZONE COMPONENT PRESENT. Slide scanned and imaged by [employer] (Vozero/Gengibre) ThinPrep Imaging System with manual review of all selected desai. Electronically Signed Out By AMOR Saini (ASCP) AMOR Saini (ASCP) Cervical cytology is a screening test primarily for squamous cancers and precursors and has associated false negative and positive results. New technologies such as liquid based sampling may decrease but will not eliminate all false negative results. Regular screening and follow-up of unexplained clinical signs and symptoms are recommended to minimize false negative results. Please see the ASCCP website (www.asccp.org) for followup recommendations. If HPV testing was requested, correlation with the results is suggested (please call Microbiology at [phone] for results). CLINICAL INFORMATION: Menstrual History: : Second trimester Date of Last Menstrual Period: {Not Provided} Contraceptive History: Other: Other Clinical Conditions: If ASCUS and > 24 years of age, HPV/DNA testing requested. SPECIMEN DESCRIPTION: A: THIN PREP (CERVICAL/VAGINAL) THIN PREP PROCESS CELLULAR ENHANCEMENT ICD: F: A; RT IMAGE [id number] SNOMED CODES: A; [id number] In cases where a pathologist has signed out the report, the service has been rendered in part by a resident. The signing pathologist has performed and is responsible for the reported pathologic evaluation. us Historical Provider LAB PATHOLOGY ORDERABLES Fin al Result SUNQUEST from Last 3 Months or Most Recently Relevant to Health Maintenance Insurance [facility] Care Teams Sql Server Bi Developer Relationship Specialty Start Date End Date Ghassan Tirado MD [address] [facility] [address] [address] PCP - General 06/09/21 Ravi Guerrero MD [address] [place] [address] Kids Activities Coach 06/09/21
--- NOTE | 2025-04-05 16:31 | [facility].EDGENADL ---
Discharge Plan Disposition Patient Disposition: Home, Self-Care Prescriptions Prescriptions: New ondansetron 4 mg tablet,disintegrating 4 mg PO Q6H PRN (Reason: nausea and vomiting) Qty: 12 0RF No Action metronidazole 500 mg Tablet 500 mg PO BID Qty: 20 0RF levofloxacin 500 mg tablet 500 mg PO DAILY Qty: 7 0RF ketorolac 10 mg tablet 10 mg PO Q8H 3 Days Qty: 9 0RF ondansetron 4 mg tablet,disintegrating 4 mg PO Q8H PRN (Reason: nausea and vomiting) Qty: 7 0RF hydroxyzine HCl 25 mg tablet 25 mg PO Q8H PRN (Reason: nausea and vomiting) Qty: 20 0RF buprenorphine-naloxone 8-2 mg tablet, sublingual 1.5 tab SUBLINGUAL DAILY Patient Comments: DISSOLVE 1 & 1/2 TABLET UNDER THE TONGUE ONCE DAILY DIRECTED clindamycin HCl 150 mg capsule 450 mg PO TID 10 Days Qty: 90 0RF ondansetron 4 mg tablet,disintegrating 4 mg PO Q6H PRN (Reason: nausea and vomiting) Qty: 10 0RF ondansetron 4 mg tablet,disintegrating 4 mg PO Q6H PRN (Reason: nausea and vomiting) 5 Days Qty: 20 0RF Referrals Follow up/Referrals: Provider,Referral, MD [Primary Care Provider, Medical] - See instructions Activity Restrictions/Add. Instructions Additional Instructions/Restrictions: I am prescribing Zofran to help with nausea and vomiting. Take this as prescribed. Avoid marijuana use as this can cause nausea and vomiting. Continue to hydrate well by drinking plenty of fluids, including water, sugar-free Gatorade and Pedialyte. Call with your primary care physician. If you develop any new or worsening symptoms, or if you become concerned for your health for any reason, return to the emergency department for evaluation. Your magnesium level was low today. You did receive magnesium replacement in your IV. You can take 400 mg of magnesium daily over the next week. Clinical Impressions Clinical Impression: Nausea & vomiting, Hypomagnesemia Instructions Patient Instructions: DI for Diarrhea and Traveler's Diarrhea -- Adult, DI for Diarrhea and Traveler's Diarrhea -- Child, DI for Nausea -- Adult, DI for Nausea -- Child Print Language Print Language: Armenian Discharge ED Provider: Karsner,Alvin General Adult HPI General Chief complaint: Nausea/Vomiting/Diarrhea Stated complaint: feet spasms, leg pain Time Seen by Provider: 04/05/25 16:31 Mode of Arrival: Wheelchair Source of Information: Patient Description of Symptoms (Recalled from ER Triage Doc. by RN): Patient states her legs are cramping since this morning, and that she has had nausea and vomiting since yesterday. States she is on suboxone and did not take it today but took it yesterday. Also admits to marijuana use daily. History of Present Illness HPI narrative: Marci Angulo is a 29F with a history of recurrent nausea and vomiting, marijuana use, tobacco use, who presents to the emergency department for complaints of nausea, vomiting and possible dehydration with her legs drawing up. Patient states over the last 2 days, she has had nonbilious nonbloody vomiting and has been unable to keep any food or liquid down. She reports no abdominal pain at this time. She states that her legs have been drawing up . She thinks she might be dehydrated. She does state that she uses marijuana every day as that is the only thing that allows her to eat and be hungry. She has not smoked over the last 2 days. She denies any fevers. She denies any diarrhea. She denies any urinary symptoms. Related Data Home Medications ?Medication ?Instructions ?Recorded ?Confirmed buprenorphine 8 mg-naloxone 2 mg 1.5 tab sublingual DAILY addiction 07/25/22 08/27/22 sublingual tablet Previous Rx's ?Medication ?Instructions ?Recorded ketorolac 10 mg tablet 10 mg PO Q8H 3 days #9 tabs 08/28/22 levofloxacin 500 mg tablet 500 mg PO DAILY #7 tabs 08/28/22 metronidazole 500 mg tablet 500 mg PO BID #20 tabs 08/28/22 ondansetron 4 mg disintegrating 4 mg PO Q8H PRN nausea and 10/01/22 tablet vomiting #7 tabs clindamycin HCl 150 mg capsule 450 mg (3 x 150 mg) PO TID 10 days 04/23/23 #90 caps ondansetron 4 mg disintegrating 4 mg PO Q6H PRN nausea and 04/23/23 tablet vomiting #10 tabs ondansetron 4 mg disintegrating 4 mg PO Q6H PRN nausea and 07/09/23 tablet vomiting 5 days #20 tabs hydroxyzine HCl 25 mg tablet 25 mg PO Q8H PRN nausea and 05/26/24 vomiting #20 tabs ondansetron 4 mg disintegrating 4 mg PO Q6H PRN nausea and 04/05/25 tablet vomiting #12 tabs Allergies Allergy/AdvReac Type Severity Reaction Status Date / Time amoxicillin (AMOXICILLIN) Allergy Unknown Verified 05/24/20 10:32 [facility] Disclaimer: The information contained in this section may have been updated after the patient was seen, as this information can be updated by other users. Medical History Opioid dependence Surgical History Hx of appendectomy Hx of cholecystectomy Social History Smoking Status: Current every day smoker tobacco type: cigarettes packs per day: 5 alcohol intake: never substance use type: former substance user current occupational status: other Travel in the last 8 weeks?: None household members: significant other and children Have you lived/traveled outside [place] in past 30 days?: No Contact w/someone who lives/traveled outside [place] past 30 days?: No Exposure to someone with infectious disease in past 14 days?: No Do you have a fever (greater than 100.4 F or 38 C)?: No Have you tested positive for COVID-19?: No Exposed to someone with COVID-19 in past 14 days?: No Do you have a sore throat?: No Do you have a cough?: No Do you have any weakness?: No Do you have any diarrhea?: No Are you experiencing any unusual bleeding?: No Do you have any muscle aches/pain?: No Do you have any abdominal pain?: No Are you experiencing loss of taste or smell?: No Other Medical History Have you received the Flu Vaccine for this season: No Have you received the Pneumonia Vaccine: No ROS Obtained: Yes Systems reviewed as appropriate & no additional complaints except as documented Physical Exam General General appearance: alert and in no apparent distress Head Head exam: atraumatic Eye Eye exam: Present normal appearance ENT ENT exam: Present mucous membranes dry and normal external ear exam Neck Neck exam: Present full ROM Chest Chest inspection: Present symmetric chest wall rise Respiratory Respiratory exam: Present normal lung sounds bilaterally; Absent respiratory distress, wheezes or stridor Cardiovascular Cardiovascular exam: Present regular rate and normal rhythm Abdominal Exam Abdominal exam: Present soft; Absent tenderness or guarding Extremities Exam Extremities exam: Present normal inspection Back Exam Back exam: Present normal inspection Neurological Exam Neurological exam: Present alert and oriented X3 Psychiatric Psychiatric exam: Present normal affect Skin Skin exam: Present warm and dry Medical Decision Making Medical Records Screening: Per USPSTF and CDC recommendations, given the prevalence of disease in our region, it is our hospital?s policy to screen for HIV and viral Hepatitis for all patients aged 18 and over and those with ongoing risk factors. Oli Inquiry Pt receiving controlled substance: No Vital Signs: 04/05/25 15:58 04/05/25 17:22 04/05/25 17:30 Pulse Rate 90 83 Pulse Rate [Left Brachial] 124 H Respiratory Rate 16 Blood Pressure 99/53 L 89/57 L Blood Pressure [Left Arm] 124/51 L Blood Pressure Mean [Left Arm] 75 Blood Pressure Source [Left Arm] Automatic Cuff Blood Pressure Position [Left Arm] Sitting 02 Sat by Pulse Oximetry 98 96 98 Oxygen Delivery Method Room Air Room Air Lab Data Lab Results 04/05/25 17:05: WBC 13.6 H, RBC 4.55, Hgb 14.7, Hct 42.8, MCV 94.1, MCH 32.3 H, MCHC 34.3, RDW 11.7, Plt Count 303, MPV 10.7 H, Neut % (Auto) 88.1 H, Lymph % (Auto) 6.9 L, [place] % (Auto) 4.0, Eos % (Auto) 0.0 L, Baso % (Auto) 0.3, Neut # (Auto) 12.0 H, Lymph # (Auto) 0.9, [place] # (Auto) 0.6, Eos # (Auto) 0.0, Baso # (Auto) 0.0, Sodium 136, Potassium 4.0, Chloride 97 L, Carbon Dioxide 25, Anion Gap 18.0 H, BUN 16, Creatinine 0.70, Estimated Creat Clear 88, Estimated GFR 98, Est GFR ( Amer) 119, Glucose 151 H, Calcium 9.8, Magnesium 1.3 L, Total Bilirubin 0.6, AST 34, ALT 23, Alkaline Phosphatase 79, Total Protein 8.2, Albumin 4.6, Globulin 3.6 H, Albumin/Globulin Ratio 1.3, Lipase 35, Serum HCG, Qual Negative 04/05/25 17:05 04/05/25 17:05 Orders (Tests/Meds): ED MEDICATIONS Discontinued Medications Generic Name Dose Route Start Last Admin Trade Name Yinkaq PRN Reason Stop Dose Admin Lactated Ringer's 1,000 mls @ 999 mls/hr 04/05/25 16:37 04/05/25 19:38 Lactated Ringer's 1000 Ml Bag IV 04/05/25 17:37 Infused .Q1H1M ONE Infusion Magnesium Sulfate 2 gm in 50 mls @ 50 mls/hr 04/05/25 17:34 04/05/25 19:39 Magnesium Sulfate 2gm/50ml Premix IV 04/05/25 18:33 Infused ONCE ONE Infusion Lactated Ringer's 1,000 mls @ 999 mls/hr 04/05/25 18:31 04/05/25 18:53 Lactated Ringer's 1000 Ml Bag IV 04/05/25 19:31 999 mls/hr .Q1H1M ONE Administration Ondansetron HCl 4 mg 04/05/25 16:37 04/05/25 17:19 Ondansetron 4mg/2ml Vial IV 04/05/25 16:38 4 mg ONCE ONE Administration ORDERS Category Date Time Status Consult Supervisor [place] [CONS] Routine Cons 04/05/25 17:27 Active CBC w/Auto Diff [Complete Blood Count Auto Diff] Stat Lab 04/05/25 17:05 Completed CMP [Comprehensive Metabolic Panel] Stat Lab 04/05/25 17:05 Completed Lipase Stat Lab 04/05/25 17:05 Completed Magnesium Stat Lab 04/05/25 17:05 Completed Serum [HCG Qualitative, Serum] Stat Lab 04/05/25 17:05 Completed UA [Urinalysis and Microscopic] Stat Lab 04/05/25 16:37 Ordered Medical Decision Narrative: Marci Angulo is a 29F with a history of recurrent nausea and vomiting, marijuana use, tobacco use, who presents to the emergency department for complaints of nausea, vomiting and possible dehydration with her legs drawing up. Patient states over the last 2 days, she has had nonbilious nonbloody vomiting and has been unable to keep any food or liquid down. She reports no abdominal pain at this time. She states that her legs have been drawing up . She thinks she might be dehydrated. She does state that she uses marijuana every day as that is the only thing that allows her to eat and be hungry. She has not smoked over the last 2 days. She denies any fevers. She denies any diarrhea. She denies any urinary symptoms. On arrival, patient is initially tachycardic to 124 but improved to 96 without intervention. Blood pressure 124/51, maintaining appropriate oxygen saturation on room air. Physical exam, stated above, revealed a nontoxic-appearing female in no distress. She has dry mucous membranes. Abdomen is soft, nontender nondistended. Cardiopulmonary exam is unremarkable. Remainder of her physical exam is grossly unremarkable. Differential diagnosis includes, but is not limited to: Viral gastritis, cannabis hyperemesis syndrome, acute pancreatitis, dehydration, electrolyte derangement, among others. Given patient has not had any fevers and has no tenderness on exam, low concern for appendicitis or surgical abdominal pathology. Patient was administered 4 mg of IV Zofran for nausea. She was given 2 L of lactated ringer for dehydration. Initial workup in the emergency department included: CBC with differential, CMP, serum test, magnesium level, lipase, urinalysis. Patient will be treated with 1 L lactated Ringer's and 4 mg of IV Zofran. Patient's workup showed mild leukocytosis of 13.6. Hypomagnesemia at 1.3 but electrolytes otherwise grossly unremarkable nonactionable. Patient received 2 g of IV magnesium sulfate for magnesium replacement. Liver enzymes and bilirubin within normal limits. Negative test. Patient did not provide a urine sample throughout her course here. Throughout the ED, patient did have occasional low blood pressure readings, however she was laying on the left side and blood pressure has been taken off and the right arm. When she was asked to sit up, her blood pressures improved and I do believe the previous blood pressures were falsely low. I do not have any concern for sepsis at this time. Typically has mildly low blood pressure due to hypovolemia due to nausea and vomiting. On reassessment, patient reports improvement her nausea and leg cramping. She was able to tolerate p.o. Given this, is felt that she is appropriate for discharge at this time. Will prescribe Zofran for her to go home with. I encouraged her to stop using marijuana as this could be contributing to her nausea and vomiting. Encouraged her to follow-up with her primary care physician. Return precautions were given. All questions were answered. She demonstrated understanding and was in agreement this plan. She was then discharged from the emergency department in stable condition. Critical Care Critical Care Time Critical Care Time: No
[2025-04-05] MEDS: LACTATED RINGERS 1000ML 1,000 ML 999 ML IV ×2 (17:19→18:53)
[2025-04-05] MEDS: ONDANSETRON 4MG/2ML VIAL 4 MG IV (17:19)
[2025-04-05 17:22] LABS: Hematocrit 42.8 % (37.0-47.0); Hemoglobin 14.7 g/dL (12.2-16.2); Immature Granulocytes % 0.7 %; Mean Corpuscular HGB Conc 34.3 g/dL (31.8-35.4); Mean Corpuscular Hemoglobin 32.3 pg (27.0-31.2); Mean Corpuscular Volume 94.1 fl (81-99); Nucleated Red Blood Cells % 0 %; Platelet Count 303 K/mm3 (142-424); Red Blood Count 4.55 M/mm3 (4.20-5.40); Red Cell Distribution Width-SD 40.6 fL; White Blood Count 13.6 K/mm3 (4.8-10.8)
[2025-04-05 17:28] LABS: Albumin Level 4.6 g/dl (3.5-5.0); Chloride 97 mmol/L (98-107); Potassium 4.0 mmoL/L (3.5-5.1); Sodium 136 mmol/L (136-145)
[2025-04-05 17:31] LABS: Alanine Aminotransferase 23 U/L (12-78); Albumin/Globulin Ratio 1.3 (1.1-1.8); Alkaline Phosphatase 79 U/L (38-126); Anion Gap 18.0 mEq/L (5-15); Aspartate Amino Transferase 34 U/L (14-36); Bilirubin,Total 0.6 mg/dl (0.2-1.3); Blood Urea Nitrogen 16 mg/dl (7-17); Calcium 9.8 mg/dl (8.4-10.2); Carbon Dioxide 25 mmol/L (22.0-30.0); Creatinine Clearance Estimated 88 mL/min (50-200); Creatinine,Serum 0.70 mg/dl (0.52-1.04); Estimated Glomerular Filt Rate 98 ml/min (>60); GFR (African American) 119 ML/MIN (>60); Globulin 3.6 g/dL (1.3-3.2); Glucose 151 mg/dl (74-100); HCG Qualitative, Serum Negative (Negative); Lipase 35 U/L (23-300); Magnesium 1.3 mg/dl (1.6-2.3); Total Protein,Serum 8.2 g/dl (6.3-8.2)
[2025-04-05] MEDS: MAGNESIUM SULFATE IN WATER 2 GM/50 ML PIGGYBACK IV (17:57)
== END 2025-04-05 20:13 | disposition home or self-care (01) ==
PROVIDERS: Emergency Provider Student in an Organized Health Care Education/Training Program
DX: R11.2 Nausea with vomiting, unspecified (principal); E83.42 Hypomagnesemia; M62.831 Muscle spasm of calf; F17.210 Nicotine dependence, cigarettes, uncomplicated; F12.90 Cannabis use, unspecified, uncomplicated
CPT/HCPCS: 80053; 83690; 83735; 84703; 85025; 96361; 96365; 96375; 99284; 99285; J2405; J3475; J7120